=== PATIENT | female | born 1975 | race Caucasian/White ===

== ENCOUNTER 2016-06-01 02:17 | Emergency (ER) | payer BC, MEDICAID ==
[~2016-06-01] VITALS: Ht 157.5 cm; Wt 89.8 kg
[~2016-06-01 02:17] MED LIST: ALBU8.5H2 IH; BENZ100C18 PO; BUDE6HFA IH; DULO30CA3 PO; HYDR25CA5 PO; IBUP-1780 PO; LEVO125T6 PO; METO50TA2 PO; METO50TA7 PO; MONT10TA21 PO; NITR-65 PO; ONDA8TAB13 PO; OSLT75CRX PO; SULF1TAB35 PO
[2016-06-01] MEDS ORDERED: MONT10TA21 PO (02:41)
[2016-06-01] MEDS ORDERED: BECL8.7A6 IH (02:41)
[2016-06-01] MEDS ORDERED: RT-ALBUINH IH (02:41)
[2016-06-01] MEDS ORDERED: NS IV 1000 ML 1,000 ML IV ONE (02:44)
[2016-06-01] MEDS ORDERED: ONDANSETRON 4 MG/2 ML (SDV) Z0FRAN IVP ONE (02:45)
[2016-06-01 03:10] LABS: BILIRUBIN,URINE NEGATIVE (NEGATIVE); KETONES,URINE NEGATIVE (NEGATIVE); LEUKOCYTE ESTERASE ,URINE 1+ (NEGATIVE); NITRITE,URINE NEGATIVE (NEGATIVE); PH,URINE 5 (5-9); PROTEIN,URINE 1+ (NEGATIVE); UROBILINOGEN,URINE NORMAL (NORMAL)
[2016-06-01 03:12] LABS: BASOPHILS % (AUTO) 1 % (0-10); EOSINOPHILS # (AUTO) 0.1 10^3/uL (0.0-0.3); EOSINOPHILS % (AUTO) 2 % (0-10); LYMPHOCYTES # (AUTO) 2.1 X 10^3 (1.0-4.0); LYMPHOCYTES % (AUTO) 35 % (12-44); MEAN CORPUSCULAR HEMOGLOBIN 30 PG (25-34); MEAN CORPUSCULAR HGB CONC 34 G/DL (32-36); MEAN CORPUSCULAR VOLUME 86 FL (80-99); MEAN PLATELET VOLUME 11.9 FL (7.4-10.4); MONOCYTES # (AUTO) 0.5 X 10^3 (0.0-1.0); MONOCYTES % (AUTO) 9 % (0-12); NEUTROPHILS # (AUTO) 3.1 X 10^3 (1.8-7.8); NEUTROPHILS % (AUTO) 53 % (42-75); PLATELET COUNT 209 10^3/uL (130-400); RED BLOOD COUNT 4.73 10^6/uL (4.35-5.85); RED CELL DISTRIBUTION WIDTH 13.3 % (10.0-14.5); WHITE BLOOD COUNT 5.9 10^3/uL (4.3-11.0)
[2016-06-01 03:35] LABS: CALCIUM OXALATE CRYSTALS,UR FEW /LPF; SQUAMOUS EPITHELIAL CELL,UR 25-50 /HPF
[2016-06-01 03:44] LABS: ALANINE AMINOTRANSFERASE 20 U/L (0-55); ALBUMIN 4.4 G/DL (3.2-4.5); ANION GAP 12 MMOL/L (5-14); ASPARTATE AMINO TRANSFERASE 19 U/L (5-34); BILIRUBIN,TOTAL 0.7 MG/DL (0.1-1.0); BLOOD UREA NITROGEN 15 MG/DL (7-18); BUN/CREATININE RATIO 15; CARBON DIOXIDE 24 MMOL/L (21-32); CHLORIDE 106 MMOL/L (98-107); GFR ESTIMATED > 60; GLUCOSE 92 MG/DL (70-105); POTASSIUM 3.7 MMOL/L (3.6-5.0); SODIUM 142 MMOL/L (135-145); TOTAL PROTEIN 7.2 G/DL (6.4-8.2)
[2016-06-01 03:50] LABS: TROPONIN I < 0.30 NG/ML (<0.30)
[2016-06-01 04:12] LABS: THYROID STIMULATING HORMONE 3.48 UIU/ML (0.35-4.94)
[2016-06-01] MEDS ORDERED: RX-ONDANSETRON 4 MG ODT (ZOFRAN) PPK #4 SL STA (04:47)
--- NOTE | 2016-06-01 04:48 | ED General ---
General Chief Complaint: Dizziness/Syncope Stated Complaint: NAUSEA,PASSED OUT & FELL HITTING HEAD Nursing Triage Note: Pt c/o nausea x3 days and chills starting today. Pt reports she had feeling of nausea today and went to bathroom and woke up on floor. Pt also reports having syncopal epsisode at work tonight. Pt advises she becomes extremely nauseous and cold/clammy before having syncopal episode. Nursing Sepsis Screen: No Definite Risk Source of Information: Patient Exam Limitations: No Limitations History of Present Illness Time Seen by Provider: 02:27 Initial Comments This 40-year-old woman presents to the emergency room with complaints of significant nausea without vomiting for 3 days and associated episodes of syncope. She has felt chilled today without fever. Earlier in the day she woke up on the bathroom floor at her home not knowing how she got there. She had been very tired and nauseated just prior to that. She then went to work and had another episode of nausea and lightheadedness. She went to the bathroom and then reportedly had another syncopal episode. There was no injury and she denies any pain. She denies any chest pain, palpitations, or shortness of breath. She did have diaphoresis and shakiness associated with nausea. Her oral intake has been decreased due to nausea in the past 24 hours but she did eat today. She has a history of hypothyroidism, asthma, and hypertension. She denies any drug or alcohol use. Allergies and Home Medications Allergies Coded Allergies: Prochlorperazine (Verified Allergy, 03/15/13) metoclopramide (Verified Allergy, 03/15/13) morphine (Verified Allergy, 03/15/13) promethazine (Verified Allergy, 03/15/13) tramadol (Verified Allergy, 03/15/13) Home Medications Albuterol Sulfate 18 Gm Hfa.aer.ad Unknown Dose IH PRN (Reported) Beclomethasone Dipropionate 8.7 Gm Aer.w.adap 2 PUFF IH DAILY (Reported) Levothyroxine Sodium 125 Mcg Tablet 125 MCG PO DAILY (Reported) Metoprolol Tartrate 50 Mg Tablet 50 MG PO DAILY (Reported) Montelukast Sodium 10 Mg Tablet 10 MG PO HS (Reported) Constitutional: see HPI EENTM: no symptoms reported Respiratory: no symptoms reported Cardiovascular: syncope Gastrointestinal: see HPI Genitourinary: no symptoms reported : No Musculoskeletal: no symptoms reported Skin: no symptoms reported Psychiatric/Neurological: See HPI Hematologic/Lymphatic: No Symptoms Reported Past Pergghg-Vrntso-Cwggkr Hx Patient Social History Alcohol Use: Denies Use Recreational Drug Use: No Smoking Status: Never a Smoker Recent Foreign Travel: No Contact w/Someone Who Travel: No Recent Infectious Disease Expo: No Recent Hopitalizations: No Immunizations Up To Date Date of Influenza Vaccine: Jan 28, 2014 Seasonal Allergies Seasonal Allergies: No Surgeries HX Surgeries: Yes (MMK) Surgeries: Adenoidectomy, Section, Gallbladder, Hysterectomy, Tonsillectomy Respiratory Hx Respiratory Disorders: Yes Respiratory Disorders: Asthma Cardiovascular Hx Cardiac Disorders: Yes Cardiac Disorders: Hypertension Neurological Hx Neurological Disorders: No 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 System Hx 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 Disorders: No Sexually Transmitted Disease: No HIV/AIDS: 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 Genitourinary Hx Genitourinary Disorders: No Gastrointestinal Hx Gastrointestinal Disorders: No Musculoskeletal Hx Musculoskeletal Disorders: Yes Musculoskeletal Disorders: Arthritis, Chronic Back Pain Endocrine Hx Endocrine Disorders: Yes Endocrine Disorders: Hypothyroidsim HEENT HX ENT Disorders: No Cancer Hx Cancer: No Psychosocial Hx Psychiatric Problems: Yes Behavioral Health Disorders: Sleep Difficulties, Anxiety, PTSD, Depression Integumentary HX Skin/Integumentary Disorder: No Blood Transfusions Hx Blood Disorders: No Family Medical History Significant Family History: Heart Disease, Stroke, Other Conditions/Hx ( myasthenia gravis, lupus) Physical Exam Vital Signs Vital Sign - Last 12Hours 06/01/16 02:34 Temp 97.0 Pulse 88 Resp 18 B/P 132/83 Pulse Ox 97 O2 Delivery Room Air Capillary Refill : Less Than 3 Seconds General Appearance: No Apparent Distress WD/WN HEENT: PERRL/EOMI TMs Normal Normal ENT Inspection Pharynx Normal Neck: Normal Inspection Supple Respiratory: Lungs Clear Normal Breath Sounds No Accessory Muscle Use No Respiratory Distress Cardiovascular: Regular Rate, Rhythm No Edema No Murmur Normal Peripheral Pulses Gastrointestinal: Normal Bowel Sounds Non Tender Soft Back: Normal Inspection Extremity: Normal Inspection No Pedal Edema Neurologic/Psychiatric: Alert Oriented x3 No Motor/Sensory Deficits Normal 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 as 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 Skin: Normal Color Warm/Dry Progress/Results/Core Measures Results/Orders Lab Results Laboratory Tests Test 06/01/16 02:55 06/01/16 02:57 Range/Units Alanine Aminotransferase (ALT/SGPT) 20 0-55 U/L Albumin 4.4 3.2-4.5 G/DL Alkaline Phosphatase 131 40-136 U/L Anion Gap 12 5-14 MMOL/L Aspartate Amino Transf (AST/SGOT) 19 5-34 U/L BUN/Creatinine Ratio 15 Basophils # (Auto) 0.0 0.0-0.1 10^3/uL Basophils (%) (Auto) 1 0-10 % Blood Urea Nitrogen 15 7-18 MG/DL Calcium Level 10.0 8.5-10.1 MG/DL Carbon Dioxide Level 24 21-32 MMOL/L Chloride Level 106 98-107 MMOL/L Creatinine 1.00 0.60-1.30 MG/DL Eosinophils # (Auto) 0.1 0.0-0.3 10^3/uL Eosinophils (%) (Auto) 2 0-10 % Estimat Glomerular Filtration Rate > 60 Free Thyroxine 0.92 0.70-1.48 NG/DL Glucose Level 92 70-105 MG/DL Hematocrit 41 35-52 % Hemoglobin 14.0 11.5-16.0 G/DL Lymphocytes # (Auto) 2.1 1.0-4.0 X 10^3 Lymphocytes (%) (Auto) 35 12-44 % Mean Corpuscular Hemoglobin 30 25-34 PG Mean Corpuscular Hemoglobin Concent 34 32-36 G/DL Mean Corpuscular Volume 86 80-99 FL Mean Platelet Volume 11.9 H 7.4-10.4 FL Monocytes # (Auto) 0.5 0.0-1.0 X 10^3 Monocytes (%) (Auto) 9 0-12 % Neutrophils # (Auto) 3.1 1.8-7.8 X 10^3 Neutrophils (%) (Auto) 53 42-75 % Platelet Count 209 130-400 10^3/uL Potassium Level 3.7 3.6-5.0 MMOL/L Red Blood Count 4.73 4.35-5.85 10^6/uL Red Cell Distribution Width 13.3 10.0-14.5 % Sodium Level 142 135-145 MMOL/L Thyroid Stimulating Hormone (TSH) 3.48 0.35-4.94 UIU/ML Total Bilirubin 0.7 0.1-1.0 MG/DL Total Protein 7.2 6.4-8.2 G/DL Troponin I < 0.30 <0.30 NG/ML White Blood Count 5.9 4.3-11.0 10^3/uL Urine Bacteria FEW H /HPF Urine Bilirubin NEGATIVE NEGATIVE Urine Calcium Oxalate Crystals FEW H /LPF Urine Casts NONE /LPF Urine Clarity CLEAR Urine Color YELLOW Urine Crystals PRESENT H /LPF Urine Culture Indicated NO Urine Glucose (UA) NEGATIVE NEGATIVE Urine Ketones NEGATIVE NEGATIVE Urine Leukocyte Esterase 1+ H NEGATIVE Urine Mucus SMALL H /LPF Urine Nitrite NEGATIVE NEGATIVE Urine Protein 1+ H NEGATIVE Urine RBC RARE /HPF Urine RBC (Auto) 1+ H NEGATIVE Urine Specific [place] 1.025 H 1.016-1.022 Urine Squamous Epithelial Cells 25-50 H /HPF Urine Urobilinogen NORMAL NORMAL MG/DL Urine WBC 2-5 /HPF Urine pH 5 5-9 My Orders Orders-LILIANA BYRD MD Cbc With Automated Diff (06/01/16 02:27) Comprehensive Metabolic Panel (06/01/16 02:27) Troponin I (06/01/16 02:27) Ua Culture If Indicated (06/01/16 02:27) Saline Lock/Iv-Start (06/01/16 02:27) Ekg Tracing (06/01/16 02:27) Monitor-Rhythm Ecg Trace Only (06/01/16 02:27) Ns Iv 1000 Ml (Sodium Chloride 0.9%) (06/01/16 02:44) Ondansetron Injection (Zofran Injectio (06/01/16 02:45) Thyroid Stimulating Hormone (06/01/16 03:28) Chest 1 View, Ap/Pa Only (06/01/16 03:28) Free T4 (Free Thyroxine) (06/01/16 03:30) Rx-Ondansetron Po (Rx-Zofran Po) (06/01/16 04:47) Medications Given in ED Vital Signs/I&O Blood Pressure Mean: 99 Progress Note : Progress Note Workup was relatively unremarkable except for concentrated urine. Patient received a liter of IV fluids. A take-home pack of Zofran was dispensed. There is suspicion for vasovagal syncope given the association with nausea. Patient was advised to follow-up closely with her primary care provider. ECG Initial ECG Impression Date: Jun 01, 2016 Initial ECG Impression Time: 03:15 Initial ECG Rate: 71 Initial ECG Rhythm: Normal Sinus Initial ECG Intervals: Normal Initial ECG Impression: Normal Comment Normal sinus rhythm with no ST elevation or depression. No abnormal intervals or axis deviation. Diagnostic Imaging Diagonstic Imaging: Xray Plain Films/CT/US/NM/MRI: chest Comments Chest x-ray viewed by me. Report not yet available. No acute abnormalities appreciated. Departure Impression Impression: Primary Impression: Syncope Qualified Code: R55 - Syncope and collapse Additional Impression: Nausea Disposition: 01 HOME, SELF-CARE Condition: Improved Departure-Patient Inst. Decision time for Depature: 04:30 Referrals: NO,LOCAL PHYSICIAN (PCP/Family) Primary Care Physician Patient Instructions: Syncope (Fainting) (DC) Add. Discharge Instructions: Drink plenty of clear liquids. Gradually advance your diet with small quantities of bland food as tolerated. Eat small amounts frequently. Follow- up with your primary care provider soon as possible. If you feel lightheaded or dizzy, please sit down or lie down immediately to prevent passing out and injury. 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 Return to the ER if symptoms worsen. Dissolve Zofran (ondansetron) under the tongue every 4 hours as needed for nausea. All discharge instructions reviewed with patient and/or family. Voiced understanding. LILIANA BYRD MD Jun 01, 2016 04:48
[2016-06-01 05:08] VITALS: BP 124/87
--- NOTE | 2016-06-01 06:49 | Diagnostic Imaging Report ---
INDICATION: Dizziness EXAMINATION: Portable chest at 3:43 AM Heart size and pulmonary vascularity are normal. Lungs are clear. There are no effusions or pneumothoraces. IMPRESSION: Negative chest. Dictated by: Dictated on workstation # [id number]
== END 2016-06-01 05:08 | disposition home or self-care (01) ==
LOC: EDUNIT# 02:17 → ER 02:23
DX: R55 Syncope and collapse (principal); R11.0 Nausea; J45.909 Unspecified asthma, uncomplicated; I10 Essential (primary) hypertension
CPT/HCPCS: 36415; 71010; 80053; 81000; 84439; 84443; 84484; 85025; 93005; 93041; 96360; 96361

== ENCOUNTER 2016-08-14 20:39 | Emergency (ER) | payer SELFPAY ==
[~2016-08-14] VITALS: Ht 157.5 cm; Wt 89.8 kg
[~2016-08-14 20:39] MED LIST changes: +BECL8.7A6 IH; +RT-ALBUINH IH
--- NOTE | 2016-08-14 21:49 | ED Cough/URI ---
General Chief Complaint: Cough/Cold/Flu Symptoms Stated Complaint: THROAT PAIN Nursing Triage Note: PT C/O COUGH, COLD, CONGESTION X 2 WEEKS. SORE THROAT X 2 DAYS, RADIATING TO RIGHT EAR. Source: patient History of Present Illness Time seen by provider: 21:40 Initial Comments C/O SORE THROAT C/O PRODUCTIVE COUGH --YELLOW SPUTUM IN AM ONLY THESE SYMPTOMS X 2 WEEKS PAIN FROM THROAT RADIATING TO RIGHT EAR NO FEVER. HAD CHILLS LAST NIGHT NO SHORTNESS OF BREATH. WAS WHEEZING A FEW NIGHTS AGO STATES TONIGHT SHE HAS BEEN UNABLE TO EAT DUE TO THROAT PAIN, ABLE TO SWALLOW LIQUIDS OK NO KNOWN SICK CONTACTS PCP: BETTY DRUMMOND Allergies and Home Medications Allergies Coded Allergies: Prochlorperazine (Verified Allergy, 03/15/13) metoclopramide (Verified Allergy, 03/15/13) morphine (Verified Allergy, 03/15/13) promethazine (Verified Allergy, 03/15/13) tramadol (Verified Allergy, 03/15/13) Home Medications Albuterol Sulfate 18 Gm Hfa.aer.ad, Unknown Dose IH PRN, (Reported) Amoxicillin 875 Mg Tablet, 875 MG PO BID, #30 Prescribed by: GALO OROZCO on 08/14/162205 Beclomethasone Dipropionate 8.7 Gm Aer.w.adap, 2 PUFF IH DAILY, (Reported) Fluticasone Propionate 9.9 Ml [place].susp, 2 SPRAYS NS BID, #1 Prescribed by: GALO OROZCO on 08/14/162205 Levothyroxine Sodium 125 Mcg Tablet, 125 MCG PO DAILY, (Reported) Loratadine/Pseudoephedrine 1 Each Tab.er.12h, 1 EACH PO BID, #20 Prescribed by: GALO OROZCO on 08/14/162205 Methylprednisolone 4 Mg Tab.ds.pk, 4 MG PO UD, #1 Prescribed by: GALO OROZCO on 08/14/162205 Metoprolol Tartrate 50 Mg Tablet, 50 MG PO DAILY, (Reported) Montelukast Sodium 10 Mg Tablet, 10 MG PO HS, (Reported) Constitutional: no symptoms reported, No chills, No diaphoresis, No dizziness, No fever EENTM: ear pain, see HPI, throat pain, No hoarseness, No nose congestion Respiratory: see HPI, cough, No short of breath, No wheezing Cardiovascular: no symptoms reported Gastrointestinal: no symptoms reported, No nausea Genitourinary: no symptoms reported Musculoskeletal: no symptoms reported Skin: no symptoms reported Psychiatric/Neurological: No Symptoms Reported Hematologic/Lymphatic: No Symptoms Reported Immunological/Allergic: no symptoms reported Past Sfiskbc-Tibeyl-Wbhhwx Hx Patient Social History Alcohol Use: Denies Use Recreational Drug Use: No Smoking Status: Never a Smoker Recent Foreign Travel: No Contact w/Someone Who Travel: No Recent Infectious Disease Expo: No Recent Hopitalizations: No Immunizations Up To Date Date of Influenza Vaccine: Jan 28, 2014 Seasonal Allergies Seasonal Allergies: No Surgeries HX Surgeries: Yes (MMK) Surgeries: Adenoidectomy, Bladder Surgery, Section, Gallbladder, Hysterectomy, Tonsillectomy Respiratory Hx Respiratory Disorders: Yes Respiratory Disorders: Asthma Cardiovascular Hx Cardiac Disorders: Yes Cardiac Disorders: Hypertension Neurological Hx Neurological Disorders: No 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 System Hx 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 Disorders: Yes (HYST) Sexually Transmitted Disease: No HIV/AIDS: 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 Genitourinary Hx Genitourinary Disorders: No Gastrointestinal Hx Gastrointestinal Disorders: No Musculoskeletal Hx Musculoskeletal Disorders: Yes Musculoskeletal Disorders: Arthritis, Chronic Back Pain Endocrine Hx Endocrine Disorders: Yes Endocrine Disorders: Hypothyroidsim HEENT HX ENT Disorders: No Cancer Hx Cancer: No Psychosocial Hx Psychiatric Problems: Yes (EXTENSIVE PSYCH ISSUES--HX OF NON-COMPLIANCE) Behavioral Health Disorders: Sleep Difficulties, Anxiety, PTSD, Depression Integumentary HX Skin/Integumentary Disorder: No Blood Transfusions Hx Blood Disorders: No Physical Exam Vital Signs Vital Sign - Last 12Hours 08/14/16 08/14/16 08/14/16 21:32 21:35 22:18 Temp 98.3 Pulse 91 Resp 18 B/P (MAP) 142/93 Pulse Ox 97 O2 Delivery Room Air Capillary Refill : Less Than 3 Seconds General Appearance: WD/WN, no apparent distress, other (TALKS NON-STOP AT LENGTH. 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, no motor/sensory deficits, alert, normal mood/affect, oriented x 3 Skin: normal color, warm/dry Lymphatic: no adenopathy Progress/Results/Core Measures Results/Orders Lab Results Laboratory Tests Test 08/14/16 21:39 Range/Units Group A Streptococcus Screen NEGATIVE NEGATIVE My Orders Orders - GALO OROZCO DO Rapid Strep A Screen (08/14/16 21:42) Rx-Amoxicillin Capsule (Rx-Polymox Capsu (08/14/16 22:02) Rx-Naproxen (Rx-Naprosyn) (08/14/16 22:02) Vital Signs/I&O Vital Sign - Last 12Hours 08/14/16 08/14/16 08/14/16 21:32 21:35 22:18 Temp 98.3 Pulse 91 73 Resp 18 14 B/P (MAP) 142/93 Pulse Ox 97 O2 Delivery Room Air Blood Pressure Mean: 109 Departure Impression Impression: Primary Impression: Sinusitis Additional Impressions: Pharyngitis Bronchitis Disposition: 01 HOME, SELF-CARE Condition: Stable Departure-Patient Inst. Referrals: NO,LOCAL PHYSICIAN (PCP/Family) Primary Care Physician Patient Instructions: Acute Bronchitis, Adult (DC), Sinusitis, Adult (DC), Sore Throat, Adult (DC) Add. Discharge Instructions: FREQUENT SALT WATER GARGLES LOTS OF CLEAR LIQUIDS TYLENOL 1 GRAM /MOTRIN 800 MG 4 TIMES A DAY FOR PAIN OR FEVER FOLLOW UP WITH YOUR DR IN 3-4 DAYS IF NO BETTER All discharge instructions reviewed with patient and/or family. Voiced understanding. Scripts Methylprednisolone (Medrol) 4 Mg Tab.ds.pk 4 MG PO UD, #1 PKG Prov: GALO OROZCO DO 08/14/16 Fluticasone Propionate (Flonase Allergy Relief) 9.9 Ml [place].susp 2 SPRAYS NS BID, #1 SPRAY Prov: GALO OROZCO DO 08/14/16 Loratadine/Pseudoephedrine (Claritin-D 12 Hour Tablet) 1 Each Tab.er.12h 1 EACH PO BID, #20 TAB Prov: GALO OROZCO DO 08/14/16 Amoxicillin (Amoxicillin) 875 Mg Tablet 875 MG PO BID for INFECTION, #30 TAB Prov: GAOL OROZCO DO 08/14/16 GALO OROZCO DO Aug 14, 2016 21:49
[2016-08-14] MEDS ORDERED: RX-AMOXICILLIN 500 MG CAP #3 PPK PO STA (22:02)
[2016-08-14] MEDS ORDERED: RX-NAPROXEN (NAPROSYN) 250 MG TAB PPK#4 PO STA (22:02)
[2016-08-14] MEDS ORDERED: FLUT9.9S NS (22:06)
[2016-08-14] MEDS ORDERED: AMOX875T2 PO (22:06)
[2016-08-14] MEDS ORDERED: METH4TAB PO (22:06)
[2016-08-14] MEDS ORDERED: LORA1TAB59 PO (22:06)
[2016-08-14 22:18] VITALS: BP 145/76
== END 2016-08-14 22:13 | disposition home or self-care (01) ==
LOC: EDUNIT# 20:39 → ER 20:42
DX: J01.90 Acute sinusitis, unspecified (principal); J02.9 Acute pharyngitis, unspecified; J40 Bronchitis, not specified as acute or chronic
CPT/HCPCS: 87430; 99283

== ENCOUNTER 2017-04-29 17:20 | Emergency (ER) | payer SELFPAY ==
[~2017-04-29] VITALS: Ht 157.5 cm; Wt 92.1 kg
[~2017-04-29 17:20] MED LIST changes: +AMOX875T2 PO; +FLUT9.9S NS; +LORA1TAB59 PO; +METH4TAB PO; +METO50TA15 PO; -METO50TA2 PO
--- OUTSIDE RECORDS SUMMARY | 2017-04-29 17:25 | XMS REPORT | Continuity of Care Document ---
Author Author [facility] Address Unknown Phone Unavailable Allergies Active Description Code Type Severity Reaction Onset Reported/Identified Relationship to Patient Clinical Status Yes Compazine Drug Allergy 10/03/2011 Yes Flexeril Drug Allergy 10/03/2011 Yes morphine Drug Allergy 10/03/2011 Yes Phenergan-Codeine Drug Allergy 10/03/2011 Yes Reglan Drug Allergy 10/03/2011 Yes tramadol Drug Allergy 10/03/2011 Yes metoclopramide [id number] Drug Allergy Unknown N/A 03/15/2013 Yes morphine [id number] Drug Allergy Unknown N/A 03/15/2013 Yes prochlorperazine [id number] Drug Allergy Unknown N/A 03/15/2013 Yes promethazine [id number] Drug Allergy Unknown N/A 03/15/2013 Yes tramadol [id number] Drug Allergy Unknown N/A 03/15/2013 Medications There is no data. Problems Date Dx Coded Attending Type Code Diagnosis Diagnosed By 12/05/2007 MIKE LOPEZ PHD 244.9 HYPOTHYROIDISM 12/05/2007 MIKE LOPEZ PHD 272.4 HYPERLIPIDEMIA UNSPECIFIED 12/05/2007 MIKE LOPEZ PHD 244.9 HYPOTHYROIDISM 12/05/2007 MIKE LOPEZ PHD 272.4 HYPERLIPIDEMIA UNSPECIFIED 02/26/2008 MIKE LOPEZ PHD 401.1 HYPERTENSION, BENIGN ESSENTIAL 02/26/2008 MIKE LOPEZ PHD 401.1 HYPERTENSION, BENIGN ESSENTIAL 03/17/2008 MIKE LOPEZ PHD 564.1 IRRITABLE BOWEL SYNDROME 03/17/2008 MIKE LOPEZ PHD 564.1 IRRITABLE BOWEL SYNDROME 09/21/2011 MIKE LOPEZ PHD 296.32 MO DEPRESSIVE RECURRENT MODERATE 09/21/2011 MIKE LOPEZ PHD 296.32 MO DEPRESSIVE RECURRENT MODERATE 10/03/2011 MIKE LOPEZ PHD 296.30 MO DEPRESSIVE RECURRENT UNSPECIFIED 10/03/2011 MIKE LOPEZ PHD 307.47 SI DYSSOMNIA NOS 10/03/2011 JESSICA GORDON, MIKE Steiner 309.81 AN PTSD 10/03/2011 JESSICA GORDON, MIKE Steiner 296.30 MO DEPRESSIVE RECURRENT UNSPECIFIED 10/03/2011 JESSICA GORDON, MIKE Steiner 307.47 SI DYSSOMNIA NOS 10/03/2011 JESSICA GORDON, MIKE Steiner 309.81 AN PTSD 01/26/2012 JESSICA GORDON, MIKE Steiner 300.00 AN ANXIETY UNSPEC 01/26/2012 JESSICA GORDON, MIKE Steiner 300.00 AN ANXIETY UNSPEC 03/15/2013 GALO OROZCO DO Ot 300.00 ANXIETY STATE NOS 03/15/2013 GALO OROZCO DO Ot 599.0 URIN TRACT INFECTION NOS 07/06/2014 Ot 487.1 FLU W RESP MANIFEST NEC 07/06/2014 Ot 786.2 COUGH 07/30/2015 Ot N76.4 ABSCESS OF VULVA 06/01/2016 LILIANA BYRD MD T Ot I10 ESSENTIAL (PRIMARY) HYPERTENSION 06/01/2016 LILIANA BYRD MD Ot J45.909 UNSPECIFIED ASTHMA, UNCOMPLICATED 06/01/2016 LILIANA BYRD MD T Ot R11.0 NAUSEA 06/01/2016 LILIANA BYRD MD T Ot R55 SYNCOPE AND COLLAPSE 06/02/2016 LILIANA BYRD MD T Ot I10 ESSENTIAL (PRIMARY) HYPERTENSION 06/02/2016 LILIANA BYRD MD T Ot J45.909 UNSPECIFIED ASTHMA, UNCOMPLICATED 06/02/2016 LILIANA BYRD MD T Ot R11.0 NAUSEA 06/02/2016 LILIANA BYRD MD T Ot R55 SYNCOPE AND COLLAPSE 06/07/2016 LILIANA BYRD MD T Ot I10 ESSENTIAL (PRIMARY) HYPERTENSION 06/07/2016 LILIANA BYRD MD T Ot J45.909 UNSPECIFIED ASTHMA, UNCOMPLICATED 06/07/2016 LILIANA BYRD MD T Ot R11.0 NAUSEA 06/07/2016 LILIANA BRYD MD T Ot R55 SYNCOPE AND COLLAPSE 08/14/2016 GALO OROZCO DO Ot J01.90 ACUTE SINUSITIS, UNSPECIFIED 08/14/2016 GALO OROZCO DO Ot J02.9 ACUTE PHARYNGITIS, UNSPECIFIED 08/14/2016 GALO OROZCO DO Ot J40 BRONCHITIS, NOT SPECIFIED ACUTE OR CH 08/15/2016 GALO OROZCO DO Ot J01.90 ACUTE SINUSITIS, UNSPECIFIED 08/15/2016 GALO OROZCO DO Ot J02.9 ACUTE PHARYNGITIS, UNSPECIFIED 08/15/2016 ERNESTO GALO CARROLL Ot J40 BRONCHITIS, NOT SPECIFIED ACUTE OR CH 08/20/2016 GALO OROZCO DO Ot J01.90 ACUTE SINUSITIS, UNSPECIFIED 08/20/2016 GALO OROZCO DO Ot J02.9 ACUTE PHARYNGITIS, UNSPECIFIED 08/20/2016 ERNESTO GALO CARROLL Ot J40 BRONCHITIS, NOT SPECIFIED ACUTE OR CH Procedures Code Description [place] [address] INDIV PSYTX 45/50 MIN 03/20/2012 74976 INDIV PSYTX 45/50 MIN 04/26/2012 Results Test Result Range Complete blood count (CBC) with automated white blood cell (WBC) differential - 06/01/16 02:55 Blood leukocytes automated count (number/volume) 5.9 10*3/uL 4.3-11.0 Blood erythrocytes automated count (number/volume) 4.73 10*6/uL 4.35-5.85 Venous blood hemoglobin measurement (mass/volume) 14.0 g/dL 11.5-16.0 Blood hematocrit (volume fraction) 41 % 35-52 Automated erythrocyte mean corpuscular volume 86 [foz_us] 80-99 Automated erythrocyte mean corpuscular hemoglobin (mass per erythrocyte) 30 pg 25-34 Automated erythrocyte mean corpuscular hemoglobin concentration measurement ( mass/volume) 34 g/dL 32-36 Automated erythrocyte distribution width ratio 13.3 % 10.0-14.5 Automated blood platelet count (count/volume) 209 10*3/uL 130-400 Automated blood platelet mean volume measurement 11.9 [foz_us] 7.4-10.4 Automated blood neutrophils/100 leukocytes 53 % 42-75 Automated blood lymphocytes/100 leukocytes 35 % 12-44 Blood monocytes/100 leukocytes 9 % 0-12 Automated blood eosinophils/100 leukocytes 2 % 0-10 Automated blood basophils/100 leukocytes 1 % 0-10 Blood neutrophils automated count (number/volume) 3.1 10*3 1.8-7.8 Blood lymphocytes automated count (number/volume) 2.1 10*3 1.0-4.0 Blood monocytes automated count (number/volume) 0.5 10*3 0.0-1.0 Automated eosinophil count 0.1 10*3/uL 0.0-0.3 Automated blood basophil count (count/volume) 0.0 10*3/uL 0.0-0.1 Comprehensive metabolic panel - 06/01/16 02:55 Serum or plasma sodium measurement (moles/volume) 142 mmol/L 135-145 Serum or plasma potassium measurement (moles/volume) 3.7 mmol/L 3.6-5.0 Serum or plasma chloride measurement (moles/volume) 106 mmol/L 98-107 Carbon dioxide 24 mmol/L 21-32 Serum or plasma anion gap determination (moles/volume) 12 mmol/L 5-14 Serum or plasma urea nitrogen measurement (mass/volume) 15 mg/dL 7-18 Serum or plasma creatinine measurement (mass/volume) 1.00 mg/dL 0.60-1.30 Serum or plasma urea nitrogen/creatinine mass ratio 15 NRG Serum or plasma creatinine measurement with calculation of estimated glomerular filtration rate > NRG Serum or plasma glucose measurement (mass/volume) 92 mg/dL 70-105 Serum or plasma calcium measurement (mass/volume) 10.0 mg/dL 8.5-10.1 Serum or plasma total bilirubin measurement (mass/volume) 0.7 mg/dL 0.1-1.0 Serum or plasma alkaline phosphatase measurement (enzymatic activity/volume) 131 U/L 40-136 Serum or plasma aspartate aminotransferase measurement (enzymatic activity/ volume) 19 U/L 5-34 Serum or plasma alanine aminotransferase measurement (enzymatic activity/volume ) 20 U/L 0-55 Serum or plasma protein measurement (mass/volume) 7.2 g/dL 6.4-8.2 Serum or plasma albumin measurement (mass/volume) 4.4 g/dL 3.2-4.5 Serum or plasma troponin i.cardiac measurement (mass/volume) - 06/01/16 02:55 Serum or plasma troponin i.cardiac measurement (mass/volume) < ng/ mL <0.30 THYROID STIMULATING HORMONE - 06/01/16 02:55 THYROID STIMULATING HORMONE 3.48 u[iU]/mL 0.35-4.94 Serum or plasma thyroxine (T4) free measurement (mass/volume) - 06/01/16 02:55 Serum or plasma thyroxine (T4) free measurement (mass/volume) 0.92 ng/dL 0.70-1.48 Complete urinalysis with reflex to culture - 06/01/16 02:57 Urine color determination YELLOW NRG Urine clarity determination CLEAR NRG Urine pH measurement by test strip 5 5-9 Specific gravity of urine by test strip 1.025 1.016- 1.022 Urine protein assay by test strip, semi-quantitative 1+ NEGATIVE Urine glucose detection by automated test strip NEGATIVE NEGATIVE Erythrocytes detection in urine sediment by light microscopy 1+ NEGATIVE Urine ketones detection by automated test strip NEGATIVE NEGATIVE Urine nitrite detection by test strip NEGATIVE NEGATIVE Urine total bilirubin detection by test strip NEGATIVE NEGATIVE Urine urobilinogen measurement by automated test strip (mass/volume) NORMAL NORMAL Urine leukocyte esterase detection by dipstick 1+ NEGATIVE Automated urine sediment erythrocyte count by microscopy (number/high power field) RARE NRG Automated urine sediment leukocyte count by microscopy (number/high power field ) [HPF] NRG Bacteria detection in urine sediment by light microscopy FEW NRG Squamous epithelial cells detection in urine sediment by light microscopy 25-50 NRG Crystals detection in urine sediment by light microscopy PRESENT NRG Casts detection in urine sediment by light microscopy NONE NRG Mucus detection in urine sediment by light microscopy SMALL NRG Complete urinalysis with reflex to culture NO NRG Calcium oxalate crystals detection in urine sediment by light microscopy FEW NRG Streptococcus pyogenes antigen detection - 08/14/16 21:39 Streptococcus pyogenes antigen detection NEGATIVE NEGATIVE Bacterial throat culture - 08/14/16 21:39 Bacterial throat culture NBS NRG Encounters ACCT No. Visit Date/Time Discharge Status Pt. Type Provider Facility Loc./Unit Complaint [id number] 04/26/2012 08:58:00 04/26/2012 23:59:59 [facility] MIKE LOPEZ PHD [id number] 02/09/2012 07:38:00 02/09/2012 23:59:59 [facility] MIKE LOPEZ PHD [id number] 08/14/2016 20:42:00 08/14/2016 22:13:00 DIS Outpatient GALO OROZCO DO [facility] ER THROAT PAIN [id number] 06/01/2016 02:23:00 06/01/2016 05:08:00 DIS Emergency CARSON HANKINS, LILIANA Baires [facility] ER NAUSEA,PASSED OUT FELL HIT HEAD [id number] 03/15/2013 18:48:00 03/15/2013 21:29:00 DIS Emergency GALO OROZCO DO [facility] ER MULTIPLE COMPLAINTS [id number] 07/30/2015 17:14:00 Document Registration [id number] 07/06/2014 19:22:00 Document Registration
[2017-04-29] MEDS ORDERED: MECLIZINE 25 MG (ANTIVERT) TAB PO ONE (18:15)
--- NOTE | 2017-04-29 18:19 | ED General ---
General Chief Complaint: Dizziness/Syncope Stated Complaint: DIZZINESS Nursing Triage Note: AMB TO ROOM REPORTS THAT AT 730A TODAY WHEN SHE GOT UP SHE HAS BEEN DIZZY WORSE WHEN MOVING. AMBULATED TO ROOM WITHOUT PROBLEM Nursing Sepsis Screen: No Definite Risk Source of Information: Patient Exam Limitations: No Limitations History of Present Illness Time Seen by Provider: 18:06 Initial Comments Here with report dizziness that started this morning. She states is worse when she started to set up quickly. She almost fell over twice today. Denies any recent illness. States that she's been eating and drinking okay. Denies ever having anything like this before. Timing/Duration: 12 Hours Severity: Mild Associated Systoms: No Chest Pain, No Cough, No Fever/Chills, No Nausea/ Vomiting, No Syncope Allergies and Home Medications Allergies Coded Allergies: Prochlorperazine (Verified Allergy, 03/15/13) metoclopramide (Verified Allergy, 03/15/13) morphine (Verified Allergy, 03/15/13) promethazine (Verified Allergy, 03/15/13) tramadol (Verified Allergy, 03/15/13) Home Medications Albuterol Sulfate 18 Gm Hfa.aer.ad, Unknown Dose IH PRN, (Reported) Beclomethasone Dipropionate 8.7 Gm Aer.w.adap, 2 PUFF IH DAILY, (Reported) Fluticasone Propionate 9.9 Ml [place].susp, 2 SPRAYS NS BID, #1 Prescribed by: GALO OROZCO on 08/14/162205 Levothyroxine Sodium 125 Mcg Tablet, 125 MCG PO DAILY, (Reported) Loratadine/Pseudoephedrine 1 Each Tab.er.12h, 1 EACH PO BID, #20 Prescribed by: GALO OROZCO on 08/14/162205 Methylprednisolone 4 Mg Tab.ds.pk, 4 MG PO UD, #1 Prescribed by: GALO OROZCO on 08/14/162205 Metoprolol Tartrate 50 Mg Tablet, 50 MG PO DAILY, (Reported) Montelukast Sodium 10 Mg Tablet, 10 MG PO HS, (Reported) Constitutional: see HPI, No chills, No fever EENTM: no symptoms reported Respiratory: no symptoms reported, No short of breath Cardiovascular: no symptoms reported Gastrointestinal: No abdominal pain, No nausea, No vomiting Genitourinary: no symptoms reported Musculoskeletal: no symptoms reported Skin: no symptoms reported Psychiatric/Neurological: See HPI, Denies Headache, Other (dizziness) Hematologic/Lymphatic: No Symptoms Reported Past Plpiyrk-Mcpkzo-Acwkgq Hx Patient Social History Alcohol Use: Denies Use Recreational Drug Use: No Recent Foreign Travel: No Contact w/Someone Who Travel: No Recent Infectious Disease Expo: No Recent Hopitalizations: No Immunizations Up To Date Date of Influenza Vaccine: Jan 28, 2014 Seasonal Allergies Seasonal Allergies: No Surgeries History of Surgeries: Yes (MMK) Surgeries: Adenoidectomy, Bladder Surgery, Section, Gallbladder, Hysterectomy, Tonsillectomy Respiratory History of Respiratory Disorde: Yes Respiratory Disorders: Asthma Cardiovascular History of Cardiac Disorders: Yes Cardiac Disorders: Hypertension Neurological History of Neurological Disord: No 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 System Hx 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 Disorders: Yes (HYST) Sexually Transmitted Disease: No HIV/AIDS: No 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 Gastrointestinal History of Gastrointestinal Di: No Musculoskeletal History of Musculoskeletal Dis: Yes Musculoskeletal Disorders: Arthritis, Chronic Back Pain Endocrine History of Endocrine Disorders: Yes Endocrine Disorders: Hypothyroidsim Cancer History of Cancer: No Psychosocial History of Psychiatric Problem: Yes (EXTENSIVE PSYCH ISSUES--HX OF NON- COMPLIANCE) Behavioral Health Disorders: Sleep Difficulties, Anxiety, PTSD, Depression Integumentary History of Skin or Integumenta: No Blood Transfusions History of Blood Disorders: No Reviewed Nursing Assessment Reviewed/Agree w Nursing PMH: Yes Family Medical History Significant Family History: No Pertinent Family Hx Physical Exam Vital Signs Vital Sign - Last 12Hours 04/29/17 17:40 Temp 97.5 Pulse 96 Resp 18 B/P (MAP) 149/96 (113) Capillary Refill : Less Than 3 Seconds General Appearance: No Apparent Distress (2 cm centimeter), WD/WN HEENT: PERRL/EOMI, TMs Normal, Pharynx Normal Neck: Non Tender, Supple Respiratory: Lungs Clear, Normal Breath Sounds Cardiovascular: Regular Rate, Rhythm, No Murmur Gastrointestinal: Non Tender, Soft Back: Normal Inspection, No CVA Tenderness, No Vertebral Tenderness Extremity: Normal Range of Motion, Non Tender Neurologic/Psychiatric: Alert, Oriented x3 Skin: Normal Color, Warm/Dry Progress/Results/Core Measures Suspected Sepsis Recent Fever Within 48 Hours: No Infection Criteria Present: None New/Unexplained Altered Menta: No Sepsis Screen: No Definite Risk Sepsis Diagnosis: SIRS Temperature:97.5 Pulse: 96 Respiratory Rate: 18 Laboratory Tests 04/29/17 18:30: White Blood Count 6.7 Blood Pressure 149 /96 Mean: 113 Laboratory Tests 04/29/17 18:30: Creatinine 0.98, Platelet Count 226, Total Bilirubin 0.6 Results/Orders Lab Results Laboratory Tests Test 04/29/17 18:30 04/29/17 18:40 Range/Units White Blood Count 6.7 4.3-11.0 10^3/uL Red Blood Count 4.68 4.35-5.85 10^6/uL Hemoglobin 13.6 11.5-16.0 G/DL Hematocrit 40 35-52 % Mean Corpuscular Volume 86 80-99 FL Mean Corpuscular Hemoglobin 29 25-34 PG Mean Corpuscular Hemoglobin Concent 34 32-36 G/DL Red Cell Distribution Width 13.4 10.0-14.5 % Platelet Count 226 130-400 10^3/uL Mean Platelet Volume 11.5 H 7.4-10.4 FL Neutrophils (%) (Auto) 49 42-75 % Lymphocytes (%) (Auto) 39 12-44 % Monocytes (%) (Auto) 8 0-12 % Eosinophils (%) (Auto) 3 0-10 % Basophils (%) (Auto) 0 0-10 % Neutrophils # (Auto) 3.3 1.8-7.8 X 10^3 Lymphocytes # (Auto) 2.6 1.0-4.0 X 10^3 Monocytes # (Auto) 0.5 0.0-1.0 X 10^3 Eosinophils # (Auto) 0.2 0.0-0.3 10^3/uL Basophils # (Auto) 0.0 0.0-0.1 10^3/uL Sodium Level 142 135-145 MMOL/L Potassium Level 3.7 3.6-5.0 MMOL/L Chloride Level 104 98-107 MMOL/L Carbon Dioxide Level 27 21-32 MMOL/L Anion Gap 11 5-14 MMOL/L Blood Urea Nitrogen 14 7-18 MG/DL Creatinine 0.98 0.60-1.30 MG/DL Estimat Glomerular Filtration Rate > 60 BUN/Creatinine Ratio 14 Glucose Level 89 70-105 MG/DL Calcium Level 9.7 8.5-10.1 MG/DL Magnesium Level 1.9 1.8-2.4 MG/DL Total Bilirubin 0.6 0.1-1.0 MG/DL Aspartate Amino Transf (AST/SGOT) 24 5-34 U/L Alanine Aminotransferase (ALT/SGPT) 23 0-55 U/L Alkaline Phosphatase 138 H 40-136 U/L Total Protein 8.2 6.4-8.2 GM/DL Albumin 4.5 3.2-4.5 GM/DL Thyroid Stimulating Hormone (TSH) 14.84 H 0.35-4.94 UIU/ML Urine Color YELLOW Urine Clarity CLEAR Urine pH 7 5-9 Urine Specific [place] 1.015 L 1.016-1.022 Urine Protein NEGATIVE NEGATIVE Urine Glucose (UA) NEGATIVE NEGATIVE Urine Ketones NEGATIVE NEGATIVE Urine Nitrite NEGATIVE NEGATIVE Urine Bilirubin NEGATIVE NEGATIVE Urine Urobilinogen 1 NORMAL MG/DL Urine Leukocyte Esterase 3+ H NEGATIVE Urine RBC (Auto) 2+ H NEGATIVE Urine RBC 2-5 H /HPF Urine WBC 10-25 H /HPF Urine Squamous Epithelial Cells 10-25 H /HPF Urine Crystals NONE /LPF Urine Bacteria NEGATIVE /HPF Urine Casts NONE /LPF Urine Mucus NEGATIVE /LPF Urine Culture Indicated YES My Orders Orders - ESTEFANI CASTILLO MD Cbc With Automated Diff (04/29/17 18:14) Comprehensive Metabolic Panel (04/29/17 18:14) Magnesium (04/29/17 18:14) Thyroid Stimulating Hormone (04/29/17 18:14) Ua Culture If Indicated (04/29/17 18:14) Meclizine Tablet (Antivert Tablet) (04/29/17 18:15) Urine Culture (04/29/17 18:40) Sulfamethoxazole/Trimet Ds Tab (Bactrim (04/29/17 19:48) Rx-Trimeth/Sulfameth Ds Tab (Rx-Bactrim/ (04/29/17 19:51) Medications Given in ED Current Medications Medications Dose Ordered Sig/Lynn Route Start Time Stop Time Status Last Admin Dose Admin Meclizine HCl 25 mg ONCE ONCE PO 04/29/17 18:15 04/29/17 18:17 DC 04/29/17 18:57 25 MG Vital Signs/I&O Vital Sign - Last 12Hours 04/29/17 17:40 Temp 97.5 Pulse 96 Resp 18 B/P (MAP) 149/96 (113) Capillary Refill : Less Than 3 Seconds Blood Pressure Mean: 113 Progress Note : Progress Note Seen and evaluated. Labs and UA ordered. Meclizine 25 mg by mouth. Monitor patient. 1950: Urine shows questionable urinary tract infection. Otherwise no significant findings. Patient improved after meclizine. We will initiate treatment for UTI. Discharged home with return precautions. Patient verbalize understanding instructions and agreement with plan. Instructed to follow-up with her doctor regarding her thyroid level. Departure Impression Impression: Primary Impression: Urinary tract infection Qualified Codes: N30.00 - Acute cystitis without hematuria Additional Impression: Vertigo Disposition: HOME, SELF-CARE Condition: Improved Departure-Patient Inst. Decision time for Depature: 19:54 Referrals: IRVIN DALEY MD (PCP/Family) Primary Care Physician Patient Instructions: Urinary Tract Infection, Adult (DC), Vertigo (a Type of Dizziness) (DC) Add. Discharge Instructions: All discharge instructions reviewed with patient and/or family. Voiced understanding. Drink plenty of fluids. Take medications as directed. Follow-up with your doctor regarding your thyroid studies. You should go to the store [employer] meclizine 25 mg tablets. You may take one of those every 6-8 hours as needed for dizziness. Return for worse pain, fever, vomiting, weakness, breathing problems or other concerns as needed. Scripts Sulfamethoxazole/Trimethoprim (Sulfamethoxazole-Tmp Ds Tablet) 1 Each Tablet 1 EACH PO BID, #8 TAB 0 Refills Prov: ESTEFANI CASTILLO MD 04/29/17 ESTEFANI CASTILLO MD Apr 29, 2017 18:19
[2017-04-29 18:47] LABS: BILIRUBIN,URINE NEGATIVE (NEGATIVE); CLARITY,URINE CLEAR; COLOR,URINE YELLOW; GLUCOSE, URINE (UA) NEGATIVE (NEGATIVE); KETONES,URINE NEGATIVE (NEGATIVE); LEUKOCYTE ESTERASE ,URINE 3+ (NEGATIVE); NITRITE,URINE NEGATIVE (NEGATIVE); PH,URINE 7 (5-9); PROTEIN,URINE NEGATIVE (NEGATIVE); UROBILINOGEN,URINE 1 MG/DL (NORMAL)
[2017-04-29 18:48] LABS: BASOPHILS % (AUTO) 0 % (0-10); EOSINOPHILS # (AUTO) 0.2 10^3/uL (0.0-0.3); EOSINOPHILS % (AUTO) 3 % (0-10); HEMATOCRIT 40 % (35-52); HEMOGLOBIN 13.6 G/DL (11.5-16.0); LYMPHOCYTES # (AUTO) 2.6 X 10^3 (1.0-4.0); LYMPHOCYTES % (AUTO) 39 % (12-44); MEAN CORPUSCULAR HEMOGLOBIN 29 PG (25-34); MEAN CORPUSCULAR HGB CONC 34 G/DL (32-36); MEAN CORPUSCULAR VOLUME 86 FL (80-99); MEAN PLATELET VOLUME 11.5 FL (7.4-10.4); MONOCYTES # (AUTO) 0.5 X 10^3 (0.0-1.0); MONOCYTES % (AUTO) 8 % (0-12); NEUTROPHILS # (AUTO) 3.3 X 10^3 (1.8-7.8); NEUTROPHILS % (AUTO) 49 % (42-75); PLATELET COUNT 226 10^3/uL (130-400); RED BLOOD COUNT 4.68 10^6/uL (4.35-5.85); RED CELL DISTRIBUTION WIDTH 13.4 % (10.0-14.5); WHITE BLOOD COUNT 6.7 10^3/uL (4.3-11.0)
[2017-04-29 18:57] LABS: BACTERIA,URINE NEGATIVE /HPF
[2017-04-29 19:07] LABS: ALANINE AMINOTRANSFERASE 23 U/L (0-55); ALBUMIN 4.5 GM/DL (3.2-4.5); ALKALINE PHOSPHATASE 138 U/L (40-136); BILIRUBIN,TOTAL 0.6 MG/DL (0.1-1.0); BUN/CREATININE RATIO 14; CALCIUM 9.7 MG/DL (8.5-10.1); CARBON DIOXIDE 27 MMOL/L (21-32); CHLORIDE 104 MMOL/L (98-107); CREATININE SERUM 0.98 MG/DL (0.60-1.30); GFR ESTIMATED > 60; GLUCOSE 89 MG/DL (70-105); MAGNESIUM 1.9 MG/DL (1.8-2.4); POTASSIUM 3.7 MMOL/L (3.6-5.0); SODIUM 142 MMOL/L (135-145); TOTAL PROTEIN 8.2 GM/DL (6.4-8.2)
[2017-04-29] MEDS ORDERED: TRIM/SULFAMETH 160/800 (SEPTRA DS) TAB PO STA (19:48)
[2017-04-29] MEDS ORDERED: RX-TRIMETH/SULFA. 160-800 MG (BACTRIM DS) TAB PPK#2 PO STA (19:51)
[2017-04-29] MEDS ORDERED: SULF-222 PO (19:56)
[2017-04-29 20:06] VITALS: BP 149/96
== END 2017-04-29 20:06 | disposition home or self-care (01) ==
LOC: EDUNIT# 17:20 → ER 17:21
DX: N39.0 Urinary tract infection, site not specified (principal); R42 Dizziness and giddiness; J45.909 Unspecified asthma, uncomplicated; I10 Essential (primary) hypertension; E03.9 Hypothyroidism, unspecified; F41.9 Anxiety disorder, unspecified; F43.10 Post-traumatic stress disorder, unspecified; F32.9 Major depressive disorder, single episode, unspecified; Z91.19 Patient's noncompliance with other medical treatment and regimen; Z90.89 Acquired absence of other organs; Z90.710 Acquired absence of both cervix and uterus; Z87.59 Personal history of other complications of pregnancy, childbirth and the puerperium
CPT/HCPCS: 36415; 80053; 81000; 83735; 84439; 84443; 85025; 87088; 99283

== ENCOUNTER 2019-01-23 08:18 | Emergency (ER) | payer SELFPAY ==
[~2019-01-23] VITALS: Ht 162 cm; Wt 99.0 kg
[~2019-01-23 08:18] MED LIST changes: +SULF-222 PO
--- NOTE | 2019-01-23 09:02 | ED Cough/URI ---
General Chief Complaint: Cough/Cold/Flu Symptoms Stated Complaint: COUGH/CONGESTION BODY ACHES FEVER Nursing Triage Note: PT STATES THIS IS DAY #8 OF BODY ACHES, FEVER, SORE THROAT, AND COUGH. Sepsis Screen: No Definite Risk Source: patient Exam Limitations: no limitations History of Present Illness Date Seen by Provider: Jan 23, 2019 Time Seen by Provider: 08:48 Initial Comments Here with report of cough, nasal congestion and runny nose and sore throat for the last 8 days. Has been intermittent since but seems to be worse at night. Not better. States that she usually gets bacterial upper respiratory infection annually and this feels like what. Denies nausea, vomiting, weakness, fever, diarrhea or dysuria. Timing/Duration: week, getting worse Severity/Quality: moderate, dry cough Prior Episodes/Possible Cause: occasional episodes Modifying Factors: Improves With Albuterol Inhaler; Worse With Coughing; Improves With Rest Associated Symptoms: cough, muscle aches, nasal congestion, nasal drainage, sore throat, wheezing Allergies and Home Medications Allergies Coded Allergies: Prochlorperazine (Verified Allergy, 03/15/13) metoclopramide (Verified Allergy, 03/15/13) morphine (Verified Allergy, 03/15/13) promethazine (Verified Allergy, 03/15/13) tramadol (Verified Allergy, 03/15/13) Home Medications Albuterol Sulfate 18 Gm Hfa.aer.ad, Unknown Dose IH PRN, (Reported) Beclomethasone Dipropionate 8.7 Gm Aer.w.adap, 2 PUFF IH DAILY, (Reported) Fluticasone Propionate 9.9 Ml Wynne.susp, 2 SPRAYS NS BID Prescribed by: GALO OROZCO on 08/14/162205 Levothyroxine Sodium 125 Mcg Tablet, 125 MCG PO DAILY, (Reported) Loratadine/Pseudoephedrine 1 Each Tab.er.12h, 1 EACH PO BID Prescribed by: GALO OROZCO on 08/14/162205 Methylprednisolone 4 Mg Tab.ds.pk, 4 MG PO UD Prescribed by: GALO OROZCO on 08/14/162205 Metoprolol Tartrate 50 Mg Tablet, 50 MG PO DAILY, (Reported) Montelukast Sodium 10 Mg Tablet, 10 MG PO HS, (Reported) Sulfamethoxazole/Trimethoprim 1 Each Tablet, 1 EACH PO BID Prescribed by: ESTEFANI CASTILLO on 04/29/171955 Patient Home Medication List Home Medication List Reviewed: Yes Review of Systems Review of Systems Constitutional: see HPI; No chills, No fever EENTM: see HPI Respiratory: see HPI; No hemoptysis, No short of breath Cardiovascular: No chest pain, No palpitations Gastrointestinal: No abdominal pain, No nausea, No vomiting Genitourinary: no symptoms reported Skin: no symptoms reported Past Fzgnmvp-Qjtbfv-Gmtylx Hx Past Med/Social Hx: Reviewed Nursing Past Med/Soc Hx Patient Social History Alcohol Use: Denies Use Recreational Drug Use: No Smoking Status: Never a Smoker Recent Foreign Travel: No Contact w/Someone Who Travel: No Recent Infectious Disease Expo: No Recent Hopitalizations: No Immunizations Up To Date Date of Influenza Vaccine: Jan 28, 2014 Seasonal Allergies Seasonal Allergies: No Past Medical History Surgeries: Yes (MMK) Adenoidectomy, Bladder Surgery, Section, Gallbladder, Hysterectomy, Tonsillectomy Respiratory: Yes Asthma Cardiac: Yes Hypertension Neurological: No 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 Sexually Transmitted Disease: No HIV/AIDS: No Genitourinary: No Gastrointestinal: No Musculoskeletal: Yes Arthritis, Chronic Back Pain Endocrine: Yes Hypothyroidsim Cancer: No Psychosocial: Yes (EXTENSIVE PSYCH ISSUES--HX OF NON-COMPLIANCE) Sleep Difficulties, Anxiety, PTSD, Depression Integumentary: No Blood Disorders: No Family Medical History Reviewed Nursing Family Hx No Pertinent Family Hx Physical Exam Vital Signs - First Documented 01/23/19 08:28 Temp 36.8 Pulse 85 Resp 16 B/P (MAP) 142/97 (112) Pulse Ox 97 O2 Delivery Room Air Capillary Refill : Less Than 3 Seconds Height: 5'2.00" Weight: 203lbs. oz. 92.966944cg; 37.00 BMI Method:Actual General Appearance: WD/WN, no apparent distress HEENT: PERRL/EOMI, TMs normal, pharynx normal, other (moderate bilateral nasal rhinorrhea that is clear and moderate nasal congestion with erythema.) Neck: full range of motion, supple, normal inspection Respiratory: lungs clear, normal breath sounds, other (coarse sounding cough) Cardiovascular: regular rate, rhythm, no murmur Gastrointestinal: non tender, soft Neurologic/Psychiatric: alert, oriented x 3 Progress/Results/Core Measures Suspected Sepsis Recent Fever Within 48 Hours: Yes Infection Criteria Present: Suspected New Infection New/Unexplained Altered Menta: No Sepsis Screen: No Definite Risk SIRS Temperature: Pulse: 85 Respiratory Rate: 16 Blood Pressure 142 /97 Mean: 112 Results/Orders Micro Results Microbiology 01/23/19 Influenza Types A,B Antigen ([facility]) - Final, Complete My Orders Orders - ESTEFANI CASTILLO MD Influenza A And B Antigens (01/23/19 08:44) Chest Pa/Lat (2 View) (01/23/19 08:55) Vital Signs/I&O 01/23/19 08:28 Temp 36.8 Pulse 85 Resp 16 B/P (MAP) 142/97 (112) Pulse Ox 97 O2 Delivery Room Air Capillary Refill : Less Than 3 Seconds Blood Pressure Mean: 112 Progress Note : Progress Note Seen and evaluated. Influenza screen done. Chest x-ray ordered. Monitor patient. 0935: Chest x-ray negative and so was influenza screen. Given the length of symptoms, we will initiate steroids and also azithromycin 5 day pack. She states that usually helps quite a bit. Discharged home with return precautions. Patient verbalize understanding of instructions and agreement with plan. Departure Impression Primary Impression: Upper respiratory infection Qualified Codes: J06.9 - Acute upper respiratory infection, unspecified Disposition: HOME, SELF-CARE Condition: Stable Departure-Patient Inst. Decision time for Depature: 09:36 Referrals: [facility] [place] Primary Care Physician Patient Instructions: Bacterial Upper Respiratory Infection, Adult (DC), Acute Bronchitis, Adult (DC) Add. Discharge Instructions: All discharge instructions reviewed with patient and/or family. Voiced understanding. Take medications as directed. Follow-up with your in a few days for recheck. Return for worsening pain, fever, vomiting, weakness, breathing problems or other concerns as needed. Continue to use your inhaler as needed per instructions. Drink plenty of fluids. Scripts Prednisone (Prednisone) 20 Mg Tab 40 MG PO DAILY, #10 TAB 0 Refills Prov: ESTEFANI CASTILLO MD 01/23/19 Azithromycin (Azithromycin) 250 Mg Tablet 250 MG PO UD, #6 TAB TAKE 2 TABLETS ON DAY ONE THEN TAKE 1 TABLET DAILY FOR FOUR MORE DAYS Prov: ESTEFANI CASTILLO MD 01/23/19 ESTEFANI CASTILLO MD Jan 23, 2019 09:02
--- NOTE | 2019-01-23 09:14 | Diagnostic Imaging Report ---
INDICATION: Cough, rhinorrhea and fever. PA and lateral views of the chest are obtained with comparison made study of 06/01/2016. FINDINGS: Heart size and pulmonary vascularity are within normal limits, and the lungs are clear, bilaterally. IMPRESSION: Unremarkable chest. Dictated by: Dictated on workstation # [id number]
[2019-01-23] MEDS ORDERED: AZIT250T12 PO (09:37)
[2019-01-23] MEDS ORDERED: PRD20T PO (09:37)
[2019-01-23 09:42] VITALS: BP 142/97
== END 2019-01-23 09:42 | disposition home or self-care (01) ==
LOC: EDUNIT# 08:18 → ER 08:21
DX: J06.9 Acute upper respiratory infection, unspecified (principal); I10 Essential (primary) hypertension; J45.909 Unspecified asthma, uncomplicated; E03.9 Hypothyroidism, unspecified; F41.9 Anxiety disorder, unspecified; F43.10 Post-traumatic stress disorder, unspecified; F32.9 Major depressive disorder, single episode, unspecified; Z90.89 Acquired absence of other organs; Z90.710 Acquired absence of both cervix and uterus; Z79.52 Long term (current) use of systemic steroids; Z88.5 Allergy status to narcotic agent; Z88.8 Allergy status to other drugs, medicaments and biological substances; Z79.51 Long term (current) use of inhaled steroids
CPT/HCPCS: 71046; 87804

== ENCOUNTER 2019-05-15 16:47 | Emergency (ER) | payer SELFPAY ==
[~2019-05-15] VITALS: Ht 160 cm; Wt 91.0 kg
[~2019-05-15 16:47] MED LIST changes: +AZIT250T12 PO; +PRD20T PO
--- NOTE | 2019-05-15 16:57 | ED General ---
General Chief Complaint: Cough/Cold/Flu Symptoms Stated Complaint: FLU SYMPTOMS Nursing Triage Note: PT STATES HAS HAD FEVER, COUGH COLD AND FLU SX. FEVER STARTED LAST PM Nursing Sepsis Screen: No Definite Risk Source of Information: Patient Exam Limitations: No Limitations History of Present Illness Date Seen by Provider: May 15, 2019 Time Seen by Provider: 16:57 Initial Comments Productive cough with wheezing for 3 weeks. History of asthma. No treatment as of yet. Last night she developed a fever, nausea vomiting diarrhea. Granddaughter had influenza about 3 weeks ago. Timing/Duration: Other (2 weeks) Severity: Moderate Associated Systoms: Cough, Fever/Chills, Nausea/Vomiting Allergies and Home Medications Allergies Coded Allergies: Prochlorperazine (Verified Allergy, 03/15/13) metoclopramide (Verified Allergy, 03/15/13) morphine (Verified Allergy, 03/15/13) promethazine (Verified Allergy, 03/15/13) tramadol (Verified Allergy, 03/15/13) Home Medications Acetaminophen with Codeine 1 Each Tablet, 1 EACH PO Q4H PRN for COUGH Prescribed by: SABI SUMNER on 05/15/191730 Albuterol Sulfate 18 Gm Hfa.aer.ad, Unknown Dose IH PRN, (Reported) Azithromycin 250 Mg Tablet, 250 MG PO UD TAKE 2 TABLETS ON DAY ONE THEN TAKE 1 TABLET DAILY FOR FOUR MORE DAYS Prescribed by: SABI SUMNER on 05/15/191730 Beclomethasone Dipropionate 8.7 Gm Aer.w.adap, 2 PUFF IH DAILY, (Reported) Levothyroxine Sodium 125 Mcg Tablet, 125 MCG PO DAILY, (Reported) Metoprolol Tartrate 50 Mg Tablet, 50 MG PO DAILY, (Reported) Montelukast Sodium 10 Mg Tablet, 10 MG PO HS, (Reported) Prednisone 20 Mg Tab, 40 MG PO DAILY Prescribed by: SABI SUMNER on 05/15/191730 Patient Home Medication List Home Medication List Reviewed: Yes Review of Systems Review of Systems Constitutional: see HPI, chills, fever EENTM: see HPI, nose congestion Respiratory: see HPI, cough, wheezing Cardiovascular: no symptoms reported Gastrointestinal: diarrhea, nausea, vomiting Genitourinary: no symptoms reported Musculoskeletal: no symptoms reported Skin: no symptoms reported Psychiatric/Neurological: No Symptoms Reported Past Kvuqodi-Zunxid-Pxgnja Hx Patient Social History Alcohol Use: Denies Use Recreational Drug Use: No Smoking Status: Never a Smoker Recent Foreign Travel: No Contact w/Someone Who Travel: No Recent Infectious Disease Expo: No Recent Hopitalizations: No Physical Abuse: No Sexual Abuse: No Immunizations Up To Date Date of Influenza Vaccine: Jan 28, 2014 Seasonal Allergies Seasonal Allergies: No Past Medical History Surgeries: Yes (MMK) Adenoidectomy, Bladder Surgery, Section, Gallbladder, Hysterectomy, Tonsillectomy Respiratory: Yes Asthma Cardiac: Yes Hypertension Neurological: No 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 Sexually Transmitted Disease: No HIV/AIDS: No Genitourinary: No Gastrointestinal: No Musculoskeletal: Yes Arthritis, Chronic Back Pain Endocrine: Yes Hypothyroidsim Cancer: No Psychosocial: Yes (EXTENSIVE PSYCH ISSUES--HX OF NON-COMPLIANCE) Sleep Difficulties, Anxiety, PTSD, Depression Integumentary: No Blood Disorders: No Family Medical History No Pertinent Family Hx Physical Exam Vital Signs Vital Signs - First Documented 05/15/19 05/15/19 16:51 16:55 Temp 36.6 Pulse 79 Resp 18 B/P (MAP) 123/84 (97) Pulse Ox 100 O2 Delivery Room Air Capillary Refill : Less Than 3 Seconds Height, Weight, BMI Height: 5'2.00" Weight: 203lbs. oz. 92.114185ar; 35.00 BMI Method:Actual General Appearance: No Apparent Distress, WD/WN Eyes: Bilateral Eye Normal Inspection, Bilateral Eye PERRL, Bilateral Eye EOMI HEENT: PERRL/EOMI, TMs Normal Neck: Full Range of Motion, Normal Inspection Respiratory: No Accessory Muscle Use, No Respiratory Distress, Wheezing Gastrointestinal: Normal Bowel Sounds, Non Tender, Soft Extremity: Normal Capillary Refill, Normal Inspection Neurologic/Psychiatric: Alert, Oriented x3 Skin: Normal Color, Warm/Dry Progress/Results/Core Measures Suspected Sepsis Recent Fever Within 48 Hours: Yes Infection Criteria Present: None New/Unexplained Altered Menta: No Sepsis Screen: No Definite Risk SIRS Temperature: Pulse: 79 Respiratory Rate: 18 Blood Pressure 123 /84 Mean: 97 Results/Orders Micro Results Microbiology 05/15/19 Influenza Types A,B Antigen ([facility]) - Final, Complete My Orders Orders - SABI SUMNER SPRAY RIG OPERATOR Influenza A And B Antigens (05/15/19 16:56) Albuterol/Ipra Inhalation Soln (Duoneb I (05/15/19 17:15) Svn Small Volume Nebulizer (05/15/19 17:04) Chest Pa/Lat (2 View) (05/15/19 17:04) Acetaminophen/Codeine Tablet (Tylenol W/ (05/15/19 17:15) Prednisone Tablet (Deltasone Tablet) (05/15/19 17:15) Medications Given in ED Vital Signs/I&O Capillary Refill : Less Than 3 Seconds Blood Pressure Mean: 97 Departure Impression Primary Impression: Bronchitis Disposition: 01 HOME, SELF-CARE Condition: Stable Departure-Patient Inst. Decision time for Depature: 17:30 Referrals: [facility] (PCP/Family) Primary Care Physician Patient Instructions: Acute Bronchitis, Adult (DC) Add. Discharge Instructions: 1. Medication as directed 2. Return to ER for any concerns or worsening symptoms 3. Follow-up with your doctor next week for recheck. All discharge instructions reviewed with patient and/or family. Voiced understanding. Scripts Acetaminophen with Codeine (Tylenol with Codeine #3 Tablet) 1 Each Tablet 1 EACH PO Q4H PRN for COUGH for 7 Days, #14 TAB Prov: SABI SUMNER APRN 05/15/19 Azithromycin (Azithromycin) 250 Mg Tablet 250 MG PO UD, #6 TAB TAKE 2 TABLETS ON DAY ONE THEN TAKE 1 TABLET DAILY FOR FOUR MORE DAYS Prov: SABI SUMNER APRN 05/15/19 Prednisone (Prednisone) 20 Mg Tab 40 MG PO DAILY, #6 TAB 0 Refills Prov: SABI SUMNER APRN 05/15/19 Work/School Note: Work Release Form Date Seen in the Emergency Department: May 15, 2019 Return to Work: May 17, 2019 SABI SUMNER APRN May 15, 2019 16:57
[2019-05-15] MEDS ORDERED: METF500T19 (16:58)
[2019-05-15] MEDS ORDERED: APAP 300 MG/CODEINE 30 MG (TYLENOL #3) TAB PO ONE (17:15)
[2019-05-15] MEDS ORDERED: predniSONE 20 MG TAB PO ONE (17:15)
[2019-05-15] MEDS ORDERED: RT-ALBUTEROL/IPRATROPIUM 3 ML (DUONEB) VIAL INH ONE (17:15)
--- NOTE | 2019-05-15 17:26 | Diagnostic Imaging Report ---
CLINICAL INDICATION: Patient with cough and wheezing approximately 2 weeks. Exam: Chest x-ray PA and lateral views. Comparisons: Chest x-ray dated 01/23/2019. Findings: Lungs/pleura: Lungs are clear. There is no pneumothorax. There is no pleural effusion. Mediastinum: Unremarkable. Pulmonary vasculature: Unremarkable. Heart: Unremarkable. Bones/extrathoracic soft tissue: Surgical clips are seen overlying the right upper quadrant which could be related to cholecystectomy changes. Bones show no significant interval abnormality. Impression: There is no radiographic evidence of acute cardiopulmonary process. Dictated by: Dictated on workstation # [id number]
[2019-05-15] MEDS ORDERED: PRD20T PO (17:31)
[2019-05-15] MEDS ORDERED: AZIT250T12 PO (17:31)
[2019-05-15] MEDS ORDERED: ACET-789 PO (17:31)
[2019-05-15 17:35] VITALS: BP 123/84
== END 2019-05-15 17:35 | disposition home or self-care (01) ==
LOC: EDUNIT# 16:47 → ER 16:48
DX: J45.909 Unspecified asthma, uncomplicated (principal); I10 Essential (primary) hypertension; E03.9 Hypothyroidism, unspecified; F41.9 Anxiety disorder, unspecified; F43.10 Post-traumatic stress disorder, unspecified; Z90.710 Acquired absence of both cervix and uterus; Z88.5 Allergy status to narcotic agent; Z88.8 Allergy status to other drugs, medicaments and biological substances; Z90.89 Acquired absence of other organs
CPT/HCPCS: 71046; 87804; 94640

== ENCOUNTER 2019-05-20 07:24 | Emergency (ER) | payer SELFPAY ==
[~2019-05-20] VITALS: Ht 157 cm; Wt 96.5 kg
[~2019-05-20 07:24] MED LIST changes: +ACET-789 PO; +METF500T19
[2019-05-20] MEDS ORDERED: NS IV 1000 ML 1,000 ML IV SCH (07:39)
[2019-05-20] MEDS ORDERED: ONDANSETRON 4 MG/2 ML (SDV) Z0FRAN IVP ONE (07:45)
[2019-05-20 07:46] LABS: BASOPHILS % (AUTO) 0 % (0-10); EOSINOPHILS # (AUTO) 0.1 10^3/uL (0.0-0.3); EOSINOPHILS % (AUTO) 2 % (0-10); HEMATOCRIT 43 % (35-52); HEMOGLOBIN 14.7 G/DL (11.5-16.0); LYMPHOCYTES # (AUTO) 1.9 X 10^3 (1.0-4.0); LYMPHOCYTES % (AUTO) 32 % (12-44); MEAN CORPUSCULAR HEMOGLOBIN 29 PG (25-34); MEAN CORPUSCULAR HGB CONC 34 G/DL (32-36); MEAN CORPUSCULAR VOLUME 84 FL (80-99); MEAN PLATELET VOLUME 11.4 FL (7.4-10.4); MONOCYTES # (AUTO) 0.9 X 10^3 (0.0-1.0); MONOCYTES % (AUTO) 15 % (0-12); NEUTROPHILS % (AUTO) 51 % (42-75); PLATELET COUNT 210 10^3/uL (130-400); WHITE BLOOD COUNT 5.8 10^3/uL (4.3-11.0)
[2019-05-20 08:10] LABS: ALANINE AMINOTRANSFERASE 23 U/L (0-55); ALBUMIN 4.5 GM/DL (3.2-4.5); ALKALINE PHOSPHATASE 134 U/L (40-136); BILIRUBIN,TOTAL 0.7 MG/DL (0.1-1.0); BUN/CREATININE RATIO 12; CALCIUM 9.7 MG/DL (8.5-10.1); CARBON DIOXIDE 23 MMOL/L (21-32); CHLORIDE 107 MMOL/L (98-107); CREATININE SERUM 0.97 MG/DL (0.60-1.30); GFR ESTIMATED > 60; GLUCOSE 112 MG/DL (70-105); MAGNESIUM 1.7 MG/DL (1.6-2.4); POTASSIUM 3.6 MMOL/L (3.6-5.0); SODIUM 141 MMOL/L (135-145); TOTAL PROTEIN 7.8 GM/DL (6.4-8.2)
--- NOTE | 2019-05-20 08:31 | Diagnostic Imaging Report ---
INDICATION: Lower respiratory infection. PA and lateral chest. FINDINGS: Heart size and pulmonary vascularity are normal. Lungs are clear. There are no effusions or pneumothoraces. IMPRESSION: Negative chest. Dictated by: Dictated on workstation # [id number]
[2019-05-20 08:56] LABS: CLARITY,URINE SL CLOUDY; COLOR,URINE AMBER; GLUCOSE, URINE (UA) NEGATIVE (NEGATIVE); KETONES,URINE NEGATIVE (NEGATIVE); LEUKOCYTE ESTERASE ,URINE NEGATIVE (NEGATIVE); NITRITE,URINE NEGATIVE (NEGATIVE); PH,URINE 5.5 (5-9); PROTEIN,URINE NEGATIVE (NEGATIVE)
[2019-05-20 09:13] LABS: BACTERIA,URINE FEW /HPF; BILIRUBIN,URINE 1+ (NEGATIVE); CALCIUM OXALATE CRYSTALS,UR MODERATE /LPF; SQUAMOUS EPITHELIAL CELL,UR 25-50 /HPF
--- NOTE | 2019-05-20 10:16 | ED General ---
General Chief Complaint: Abdominal/GI Problems Stated Complaint: ABD PAIN;FEVER;N/V/D;WEAKNESS;DIZZINESS Nursing Triage Note: STATES SHE WAS SEEN HERE ON SUNDAY ET DX WITH BRONCHITIS ET FLU NEG. STATES SHE HAS BEEN WORSE SINCE THE WEEKEND ET WITH N/V, COUGH, ET FEVER. Nursing Sepsis Screen: No Definite Risk Source of Information: Patient Exam Limitations: No Limitations History of Present Illness Date Seen by Provider: May 20, 2019 Time Seen by Provider: 07:30 Initial Comments This 43-year-old woman presents to the emergency room with complaints of nausea, vomiting, cough, wheezing, and shortness of breath. She was seen in this ER about 5 days ago and was diagnosed with bronchitis. She's been using her inhaler. In the interim she has developed the nausea and vomiting. She is afebrile on presentation. No blood in her stools or emesis. Allergies and Home Medications Allergies Coded Allergies: Prochlorperazine (Verified Allergy, 03/15/13) metoclopramide (Verified Allergy, 03/15/13) morphine (Verified Allergy, 03/15/13) promethazine (Verified Allergy, 03/15/13) tramadol (Verified Allergy, 03/15/13) Home Medications Acetaminophen with Codeine 1 Each Tablet, 1 EACH PO Q4H PRN for COUGH Prescribed by: SABI SUMNER on 05/15/19 1731 Albuterol Sulfate 18 Gm Hfa.aer.ad, Unknown Dose IH PRN, (Reported) Azithromycin 250 Mg Tablet, 250 MG PO UD TAKE 2 TABLETS ON DAY ONE THEN TAKE 1 TABLET DAILY FOR FOUR MORE DAYS Prescribed by: SABI SUMNER on 05/15/19 1731 Beclomethasone Dipropionate 8.7 Gm Aer.w.adap, 2 PUFF IH DAILY, (Reported) Cephalexin 500 Mg Tablet, 500 MG PO BID Prescribed by: ESTEFANI CASTILLO on 05/22/19 1047 Levothyroxine Sodium 125 Mcg Tablet, 125 MCG PO DAILY, (Reported) Metoprolol Tartrate 50 Mg Tablet, 50 MG PO DAILY, (Reported) Montelukast Sodium 10 Mg Tablet, 10 MG PO HS, (Reported) Ondansetron 4 Mg Tab.rapdis, 4 MG SL Q4H Prescribed by: LILIANA HARVEY on 05/20/19 1023 Prednisone 20 Mg Tab, 40 MG PO DAILY Prescribed by: SABI SUMNER on 05/15/19 1731 Patient Home Medication List Home Medication List Reviewed: Yes Review of Systems Review of Systems Constitutional: see HPI EENTM: no symptoms reported Respiratory: see HPI Cardiovascular: no symptoms reported Gastrointestinal: see HPI Genitourinary: no symptoms reported : No Musculoskeletal: no symptoms reported Skin: no symptoms reported Psychiatric/Neurological: No Symptoms Reported Hematologic/Lymphatic: No Symptoms Reported Immunological/Allergic: no symptoms reported Past Pizotrx-Gftjio-Qgkhhw Hx Past Med/Social Hx: Reviewed Nursing Past Med/Soc Hx Patient Social History Alcohol Use: Denies Use Recreational Drug Use: No Smoking Status: Never a Smoker Recent Foreign Travel: No Contact w/Someone Who Travel: No Recent Infectious Disease Expo: No Recent Hopitalizations: No Immunizations Up To Date Date of Influenza Vaccine: Jan 28, 2014 Seasonal Allergies Seasonal Allergies: No Past Medical History Surgeries: Yes (MMK) Adenoidectomy, Bladder Surgery, Section, Gallbladder, Hysterectomy, Tonsillectomy Respiratory: Yes (RECNET BRONCHITIS) Asthma Cardiac: Yes Hypertension Neurological: No 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 Sexually Transmitted Disease: No HIV/AIDS: No Genitourinary: No Gastrointestinal: No Musculoskeletal: Yes Arthritis, Chronic Back Pain Endocrine: Yes Hypothyroidsim Cancer: No Psychosocial: Yes (EXTENSIVE PSYCH ISSUES--HX OF NON-COMPLIANCE) Sleep Difficulties, Anxiety, PTSD, Depression Integumentary: No Blood Disorders: No Family Medical History No Pertinent Family Hx Physical Exam Vital Signs Vital Signs - First Documented 05/20/19 07:28 Temp 36.6 Pulse 103 Resp 16 B/P (MAP) 119/82 (94) Pulse Ox 98 O2 Delivery Room Air Capillary Refill : Less Than 3 Seconds Height, Weight, BMI Height: 5'2.00" Weight: 203lbs. oz. 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 Norm as Tested Skin: Normal Color, Warm/Dry Progress/Results/Core Measures Suspected Sepsis Recent Fever Within 48 Hours: No Infection Criteria Present: None New/Unexplained Altered Menta: No Sepsis Screen: No Definite Risk SIRS Temperature: Pulse: 103 Respiratory Rate: 16 Laboratory Tests 05/20/19 07:35: White Blood Count 5.8 Blood Pressure 119 /82 Mean: 94 Laboratory Tests 05/20/19 07:35: Creatinine 0.97, Platelet Count 210, Total Bilirubin 0.7 Results/Orders Lab Results Micro Results My Orders Orders - LILIANA BYRD MD Iv Push Client Advisor Ed (05/20/19 ) Medications Given in ED Vital Signs/I&O Capillary Refill : Less Than 3 Seconds Blood Pressure Mean: 94 Point of Care Testing Finger Stick Blood Glucose: 106 Progress Note : Progress Note Patient received Zofran and IV fluids with good improvement. Chest x-ray was clear. Influenza screen was negative. Diagnostic Imaging Diagonstic Imaging: Xray Plain Films/CT/US/NM/MRI: chest Comments Chest x-ray viewed by me and report reviewed. See report below: NAME: LAMAR RAYA [facility] REC#: [id number] PT STATUS: REG ER : 1975 PHYSICIAN: LILIANA BYRD MD ADMIT DATE: 05/20/19/ER Signed Date of Exam:05/20/19 CHEST PA/LAT (2 VIEW) INDICATION: Lower respiratory infection. PA and lateral chest. FINDINGS: Heart size and pulmonary vascularity are normal. Lungs are clear. There are no effusions or pneumothoraces. IMPRESSION: Negative chest. Dictated by: Dictated on workstation # [id number] Dict: 05/20/19828 Trans: 05/20/19 0950 [id number] Interpreted by: ESTEFANI HANEY MD Electronically signed by: ESTEFANI HANEY MD 05/20/19 0950 Departure Impression Primary Impression: Nausea and vomiting Qualified Codes: R11.2 - Nausea with vomiting, unspecified Additional Impression: Acute bronchitis Qualified Codes: J20.9 - Acute bronchitis, unspecified Disposition: HOME, SELF-CARE Condition: Improved Departure-Patient Inst. Decision time for Depature: 10:15 Referrals: NO,LOCAL PHYSICIAN (PCP/Family) Primary Care Physician Patient Instructions: Acute Bronchitis, Nausea and Vomiting, Adult Add. Discharge Instructions: Start with a clear liquid diet today. Drink plenty of liquids. Later in the day you may try small quantities of bland food as tolerated. Advance diet as able. You may take Tylenol and/or ibuprofen for discomfort. Use Zofran (ondansetron) as prescribed for nausea and vomiting. Continue to use your inhaled breathing treatments for wheezing and shortness of breath. Return to the emergency room if you have worsening symptoms despite these measures. All discharge instructions reviewed with patient and/or family. Voiced underst anding. Scripts Ondansetron (Ondansetron Odt) 4 Mg Tab.rapdis 4 MG SL Q4H, #10 TAB Prov: LILIANA BYRD MD 05/20/19 LILIANA BYRD MD May 20, 2019 10:16
[2019-05-20] MEDS ORDERED: ONDA4TAB11 SL (10:23)
[2019-05-20 10:24] VITALS: BP 119/82
== END 2019-05-20 10:24 | disposition home or self-care (01) ==
LOC: EDUNIT# 07:24 → ER 07:25
DX: R11.2 Nausea with vomiting, unspecified (principal); J20.9 Acute bronchitis, unspecified; J45.909 Unspecified asthma, uncomplicated; I10 Essential (primary) hypertension; E03.9 Hypothyroidism, unspecified; F41.9 Anxiety disorder, unspecified; F43.10 Post-traumatic stress disorder, unspecified; F32.9 Major depressive disorder, single episode, unspecified; Z88.5 Allergy status to narcotic agent; Z88.8 Allergy status to other drugs, medicaments and biological substances; Z90.89 Acquired absence of other organs; Z90.710 Acquired absence of both cervix and uterus
CPT/HCPCS: 36415; 71046; 80053; 81000; 82962; 83735; 85025; 86141; 87804; 96361; 96374

== ENCOUNTER 2019-05-22 07:25 | Emergency (ER) | payer SELFPAY ==
[~2019-05-22] VITALS: Ht 160 cm; Wt 96.5 kg
[~2019-05-22 07:25] MED LIST changes: +ONDA4TAB11 SL
[2019-05-22] MEDS ORDERED: LACTATED RINGERS 1,000 ML IV ONE (08:17)
[2019-05-22 08:32] LABS: BASOPHILS % (AUTO) 0 % (0-10); BILIRUBIN,URINE NEGATIVE (NEGATIVE); CLARITY,URINE SL CLOUDY; COLOR,URINE YELLOW; EOSINOPHILS # (AUTO) 0.2 10^3/uL (0.0-0.3); EOSINOPHILS % (AUTO) 4 % (0-10); GLUCOSE, URINE (UA) NEGATIVE (NEGATIVE); HEMATOCRIT 42 % (35-52); HEMOGLOBIN 14.1 G/DL (11.5-16.0); KETONES,URINE NEGATIVE (NEGATIVE); LEUKOCYTE ESTERASE ,URINE NEGATIVE (NEGATIVE); LYMPHOCYTES # (AUTO) 2.1 X 10^3 (1.0-4.0); LYMPHOCYTES % (AUTO) 39 % (12-44); MEAN CORPUSCULAR HEMOGLOBIN 28 PG (25-34); MEAN CORPUSCULAR HGB CONC 34 G/DL (32-36); MEAN CORPUSCULAR VOLUME 83 FL (80-99); MEAN PLATELET VOLUME 11.3 FL (7.4-10.4); MONOCYTES # (AUTO) 0.6 X 10^3 (0.0-1.0); MONOCYTES % (AUTO) 10 % (0-12); NEUTROPHILS # (AUTO) 2.6 X 10^3 (1.8-7.8); NEUTROPHILS % (AUTO) 47 % (42-75); NITRITE,URINE POSITIVE (NEGATIVE); PH,URINE 5.5 (5-9); PLATELET COUNT 211 10^3/uL (130-400); PROTEIN,URINE NEGATIVE (NEGATIVE); RED CELL DISTRIBUTION WIDTH 13.9 % (10.0-14.5); WHITE BLOOD COUNT 5.5 10^3/uL (4.3-11.0)
[2019-05-22 08:40] LABS: BACTERIA,URINE FEW /HPF
[2019-05-22 08:51] LABS: ALANINE AMINOTRANSFERASE 22 U/L (0-55); ALBUMIN 4.6 GM/DL (3.2-4.5); ALKALINE PHOSPHATASE 124 U/L (40-136); BILIRUBIN,TOTAL 0.7 MG/DL (0.1-1.0); BUN/CREATININE RATIO 10; CALCIUM 9.6 MG/DL (8.5-10.1); CARBON DIOXIDE 25 MMOL/L (21-32); CHLORIDE 105 MMOL/L (98-107); CREATININE SERUM 0.91 MG/DL (0.60-1.30); GFR ESTIMATED > 60; GLUCOSE 104 MG/DL (70-105); MAGNESIUM 1.8 MG/DL (1.6-2.4); POTASSIUM 3.3 MMOL/L (3.6-5.0); SODIUM 143 MMOL/L (135-145); TOTAL PROTEIN 7.9 GM/DL (6.4-8.2)
--- NOTE | 2019-05-22 09:18 | ED Abdominal Pain ---
General Chief Complaint: Abdominal/GI Problems Stated Complaint: R SIDE PAIN;BLOOD IN STOOL Nursing Triage Note: PT AMBULATED TO ROOM 10 PT CO OF R LOWER ABD PAIN INTERMITTENT SHOOTING PAIN, DARK STOOLS X2 AND BRIGHT RED BLOOD THIS AM SMALL AMOUNT Sepsis Screen: No Definite Risk Source of Information: Patient Exam Limitations: No Limitations History of Present Illness Date Seen by Provider: May 22, 2019 Time Seen by Provider: 09:04 Initial Comments Here with report of bloody stool or dark stool that has occurred over the last 12-24 hours. Started with 2 dark stools and then had blood this morning. She now remembers that she ate vegetable soup with tomatoes in the red stuff that she noted maybe actually been tomatoes. Does complain of right lower quadrant abdominal pain as well as suprapubic fullness and tenderness. Timing/Duration: 24 Hours, 1 Week (abdominal pain), Changing Over Time Severity/Quality: Moderate, Aching, Sharp Location: RLQ, Suprapubic Radiation: No Radiation Modifying Factors: Worsens With Movement Associated Symptoms: No Chest Pain, No Fever/Chills, No Nausea/Vomiting, No Shortness of Air, No Weakness Allergies and Home Medications Allergies Coded Allergies: Prochlorperazine (Verified Allergy, 03/15/13) metoclopramide (Verified Allergy, 03/15/13) morphine (Verified Allergy, 03/15/13) promethazine (Verified Allergy, 03/15/13) tramadol (Verified Allergy, 03/15/13) Home Medications Acetaminophen with Codeine 1 Each Tablet, 1 EACH PO Q4H PRN for COUGH Prescribed by: SABI SUMNER on 05/15/19 173 Albuterol Sulfate 18 Gm Hfa.aer.ad, Unknown Dose IH PRN, (Reported) Azithromycin 250 Mg Tablet, 250 MG PO UD TAKE 2 TABLETS ON DAY ONE THEN TAKE 1 TABLET DAILY FOR FOUR MORE DAYS Prescribed by: SABI SUMNER on 05/15/19 1731 Beclomethasone Dipropionate 8.7 Gm Aer.w.adap, 2 PUFF IH DAILY, (Reported) Levothyroxine Sodium 125 Mcg Tablet, 125 MCG PO DAILY, (Reported) Metoprolol Tartrate 50 Mg Tablet, 50 MG PO DAILY, (Reported) Montelukast Sodium 10 Mg Tablet, 10 MG PO HS, (Reported) Ondansetron 4 Mg Tab.rapdis, 4 MG SL Q4H Prescribed by: LILIANA HARVEY on 05/20/19 1023 Prednisone 20 Mg Tab, 40 MG PO DAILY Prescribed by: SABI SUMNER on 05/15/19 1731 Patient Home Medication List Home Medication List Reviewed: Yes Review of Systems Review of Systems Constitutional: see HPI; No chills, No fever EENTM: No No Symptoms Reported Respiratory: Cough; Denies Shortness of Air Cardiovascular: No Symptoms Reported Gastrointestinal: Abdominal Pain; Denies Diarrhea, Denies Nausea, Denies Vomiting Genitourinary: Denies Hematuria; Pain Musculoskeletal: no symptoms reported Skin: no symptoms reported Psychiatric/Neurological: No Symptoms Reported Endocrine: No Symptoms Reported Past Gmkytdy-Brfqpi-Fnrwiq Hx Past Med/Social Hx: Reviewed Nursing Past Med/Soc Hx Patient Social History Alcohol Use: Denies Use Recreational Drug Use: No Smoking Status: Never a Smoker Recent Foreign Travel: No Contact w/Someone Who Travel: No Recent Infectious Disease Expo: No Recent Hopitalizations: No Immunizations Up To Date Date of Influenza Vaccine: Jan 28, 2014 Seasonal Allergies Seasonal Allergies: No Past Medical History Surgeries: Yes (MMK) Adenoidectomy, Bladder Surgery, Section, Gallbladder, Hysterectomy, Tonsillectomy Respiratory: Yes (RECNET BRONCHITIS) Asthma Cardiac: Yes Hypertension Neurological: No 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 Disorders: 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 (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) 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 Sexually Transmitted Disease: No HIV/AIDS: No Genitourinary: No Gastrointestinal: No Musculoskeletal: Yes Arthritis, Chronic Back Pain Endocrine: Yes Hypothyroidsim Cancer: No Psychosocial: Yes (EXTENSIVE PSYCH ISSUES--HX OF NON-COMPLIANCE) Sleep Difficulties, Anxiety, PTSD, Depression Integumentary: No Blood Disorders: No Family Medical History Reviewed Nursing Family Hx No Pertinent Family Hx Physical Exam Vital Signs Vital Signs - First Documented 05/22/19 08:15 Temp 36.5 Pulse 81 Resp 18 B/P (MAP) 139/98 (112) Pulse Ox 99 Capillary Refill : Less Than 3 Seconds Height/Weight/BMI Height: 5'2.00" Weight: 203lbs. oz. 92.851061ne; 37.00 BMI Method:Actual General Appearance: WD/WN, no apparent distress HEENT: PERRL/EOMI, pharynx normal Neck: full range of motion, supple Respiratory: lungs clear, normal breath sounds, other (coarse sounding cough) Cardiovascular: regular rate, rhythm, no murmur Peripheral Pulses: 2+ Dorsalis Pedis (R), 2+ Left Dors-Pedis (L), 2+ Radial Pulses (R), 2+ Radial Pulses (L) Gastrointestinal: soft; No guarding, No rebound; tenderness (mild suprapubic into a extent right lower quadrant) Extremities: non-tender, normal inspection Back: normal inspection, no CVA tenderness, no vertebral tenderness Neurologic/Psychiatric: alert, oriented x 3 Skin: normal color, warm/dry Progress/Results/Core Measures Results/Orders Lab Results Laboratory Tests Test 05/22/19 08:20 Range/Units White Blood Count 5.5 4.3-11.0 10^3/uL Red Blood Count 5.00 4.35-5.85 10^6/uL Hemoglobin 14.1 11.5-16.0 G/DL Hematocrit 42 35-52 % Mean Corpuscular Volume 83 80-99 FL Mean Corpuscular Hemoglobin 28 25-34 PG Mean Corpuscular Hemoglobin Concent 34 32-36 G/DL Red Cell Distribution Width 13.9 10.0-14.5 % Platelet Count 211 130-400 10^3/uL Mean Platelet Volume 11.3 H 7.4-10.4 FL Neutrophils (%) (Auto) 47 42-75 % Lymphocytes (%) (Auto) 39 12-44 % Monocytes (%) (Auto) 10 0-12 % Eosinophils (%) (Auto) 4 0-10 % Basophils (%) (Auto) 0 0-10 % Neutrophils # (Auto) 2.6 1.8-7.8 X 10^3 Lymphocytes # (Auto) 2.1 1.0-4.0 X 10^3 Monocytes # (Auto) 0.6 0.0-1.0 X 10^3 Eosinophils # (Auto) 0.2 0.0-0.3 10^3/uL Basophils # (Auto) 0.0 0.0-0.1 10^3/uL Urine Color YELLOW Urine Clarity SL CLOUDY Urine pH 5.5 5-9 Urine Specific [place] 1.020 1.016-1.022 Urine Protein NEGATIVE NEGATIVE Urine Glucose (UA) NEGATIVE NEGATIVE Urine Ketones NEGATIVE NEGATIVE Urine Nitrite POSITIVE NEGATIVE Urine Bilirubin NEGATIVE NEGATIVE Urine Urobilinogen 0.2 < = 1.0 MG/DL Urine Leukocyte Esterase NEGATIVE NEGATIVE Urine RBC (Auto) TRACE-I NEGATIVE Urine RBC NONE /HPF Urine WBC 5-10 H /HPF Urine Squamous Epithelial Cells 10-25 H /HPF Urine Crystals NONE /LPF Urine Bacteria FEW H /HPF Urine Casts NONE /LPF Urine Mucus NEGATIVE /LPF Urine Culture Indicated YES Sodium Level 143 135-145 MMOL/L Potassium Level 3.3 L 3.6-5.0 MMOL/L Chloride Level 105 98-107 MMOL/L Carbon Dioxide Level 25 21-32 MMOL/L Anion Gap 13 5-14 MMOL/L Blood Urea Nitrogen 9 7-18 MG/DL Creatinine 0.91 0.60-1.30 MG/DL Estimat Glomerular Filtration Rate > 60 BUN/Creatinine Ratio 10 Glucose Level 104 70-105 MG/DL Calcium Level 9.6 8.5-10.1 MG/DL Corrected Calcium 8.5-10.1 MG/DL Magnesium Level 1.8 1.6-2.4 MG/DL Total Bilirubin 0.7 0.1-1.0 MG/DL Aspartate Amino Transf (AST/SGOT) 22 5-34 U/L Alanine Aminotransferase (ALT/SGPT) 22 0-55 U/L Alkaline Phosphatase 124 40-136 U/L C-Reactive Protein High Sensitivity 1.29 H 0.00-0.50 MG/DL Total Protein 7.9 6.4-8.2 GM/DL Albumin 4.6 H 3.2-4.5 GM/DL My Orders Orders - ESTEFANI CASTILLO MD Ed Iv/Invasive Line Start (05/22/19 08:17) Lactated Ringers (Lr 1000 Ml Iv Solution (05/22/19 08:17) Cbc With Automated Diff (05/22/19 08:17) Comprehensive Metabolic Panel (05/22/19 08:17) Hs C Reactive Protein (05/22/19 08:17) Magnesium (05/22/19 08:17) Ua Culture If Indicated (05/22/19 08:17) Urine Culture (05/22/19 08:20) Ct Abdomen/Pelvis W (05/22/19 09:15) Iohexol Injection (Omnipaque 350 Mg/Ml 1 (05/22/19 09:45) Received Contrast (Hold Metformin- Contr (05/22/19 09:45) Ns (Ivpb) (Sodium Chloride 0.9% Ivpb Bag (05/22/19 09:45) Medications Given in ED Current Medications Medications Dose Ordered Sig/Lynn Route Start Time Stop Time Status Last Admin Dose Admin Iohexol 100 ml ONCE ONCE IV 05/22/19 09:45 05/22/19 09:47 DC 05/22/19 09:53 100 ML Lactated Ringer's 1,000 ml @ 0 mls/hr Q0M ONCE IV 05/22/19 08:17 05/22/19 08:19 DC 05/22/19 08:42 1,000 MLS/HR Sodium Chloride 100 ml ONCE ONCE IV 05/22/19 09:45 05/22/19 09:47 DC 05/22/19 09:54 80 ML Vital Signs/I&O 05/22/19 08:15 Temp 36.5 Pulse 81 Resp 18 B/P (MAP) 139/98 (112) Pulse Ox 99 Blood Pressure Mean: 112 Progress Progress Note : Progress Note Seen and evaluated. IV, labs, UA, LR 1 L bolus ordered. We will get CT abdomen and pelvis. Rectal exam performed shows no hemorrhoids, masses and was heme- negative stool. UA is positive but we will rule out appendicitis given her right lower quadrant pain. 1045: Overall improved. CT negative for appendicitis. Discharged home with return precautions. Patient verbalize understanding instructions and agreement with plan. Diagnostic Imaging Diagonstic Imaging: CT Plain Films/CT/US/NM/MRI: abdomen, pelvis Comments [facility] [place], [place] NAME: LAMAR RAYA [facility] REC#: [id number] PT STATUS: REG ER : 1975 PHYSICIAN: ESTEFANI CASTILLO MD ADMIT DATE: 05/22/19/ER Draft Date of Exam:05/22/19 CT ABDOMEN/PELVIS W CT ABDOMEN/PELVIS W PROCEDURE: CT abdomen and pelvis with contrast. TECHNIQUE: Multiple contiguous axial images were obtained through the abdomen and pelvis after administration of intravenous contrast. INDICATION: Right lower quadrant abdominal pain. COMPARISON: 06/10/2007 FINDINGS: There is low-density throughout the liver indicating hepatic steatosis. The gallbladder is surgically absent. There is no evidence of biliary ductal dilatation. No pancreatic, adrenal gland or splenic lesion identified. The kidneys are also unremarkable in appearance. There is no evidence of free fluid within the abdomen or pelvis. There is no evidence of appendiceal inflammation. Partially opacified urinary bladder is unremarkable. IMPRESSION: Hepatic steatosis without other evidence of acute abnormality within the abdomen or pelvis. Dictated on workstation # [id number] Dict: 05/22/19 1015 Trans: 05/22/19 1022 [facility] [id number] Interpreted by: EDIN JONES MD Electronically signed by: Departure Impression Primary Impression: Urinary tract infection Qualified Codes: N30.00 - Acute cystitis without hematuria Disposition: HOME, SELF-CARE Condition: Improved Departure-Patient Inst. Decision time for Depature: 10:46 Referrals: NO,LOCAL PHYSICIAN (PCP/Family) Primary Care Physician Patient Instructions: Urinary Tract Infection, Adult (DC) Add. Discharge Instructions: All discharge instructions reviewed with patient and/or family. Voiced understanding. Drink plenty of fluids. Follow up with your Dr. in a few days for recheck. Return for worse pain, fever, vomiting, weakness, breathing problems or other co ncerns as needed. You may continue Tylenol/acetaminophen alternating with ibuprofen as needed for fever or pain. Scripts Cephalexin (Cephalexin) 500 Mg Tablet 500 MG PO BID, #14 TAB 0 Refills Prov: ESTEFANI CASTILLO MD 05/22/19 ESTEFANI CASTILLO MD May 22, 2019 09:18
[2019-05-22] MEDS ORDERED: HOLD METFORMIN - RECEIVED CONTRAST 20 ML VIAL IV SCH (09:45)
[2019-05-22] MEDS ORDERED: NS 100 ML (IVPB) BAG IV ONE (09:45)
[2019-05-22] MEDS ORDERED: IOHEXOL 350 MG/ML 100 ML (OMNIPAQUE 350) VIAL IV ONE (09:45)
--- NOTE | 2019-05-22 10:23 | Diagnostic Imaging Report ---
CT ABDOMEN/PELVIS W PROCEDURE: CT abdomen and pelvis with contrast. TECHNIQUE: Multiple contiguous axial images were obtained through the abdomen and pelvis after administration of intravenous contrast. INDICATION: Right lower quadrant abdominal pain. COMPARISON: 06/10/2007 FINDINGS: There is low-density throughout the liver indicating hepatic steatosis. The gallbladder is surgically absent. There is no evidence of biliary ductal dilatation. No pancreatic, adrenal gland or splenic lesion identified. The kidneys are also unremarkable in appearance. There is no evidence of free fluid within the abdomen or pelvis. There is no evidence of appendiceal inflammation. Partially opacified urinary bladder is unremarkable. IMPRESSION: Hepatic steatosis without other evidence of acute abnormality within the abdomen or pelvis. Dictated by: Dictated on workstation # [id number]
[2019-05-22] MEDS ORDERED: CEPH500T PO (10:47)
[2019-05-22 11:00] VITALS: BP 116/67
== END 2019-05-22 11:06 | disposition home or self-care (01) ==
LOC: EDUNIT# 07:25 → ER 07:26
DX: N39.0 Urinary tract infection, site not specified (principal); J45.909 Unspecified asthma, uncomplicated; I10 Essential (primary) hypertension; F41.9 Anxiety disorder, unspecified; F43.10 Post-traumatic stress disorder, unspecified; F32.9 Major depressive disorder, single episode, unspecified; E03.9 Hypothyroidism, unspecified; Z88.8 Allergy status to other drugs, medicaments and biological substances; Z88.5 Allergy status to narcotic agent; Z90.89 Acquired absence of other organs; Z90.710 Acquired absence of both cervix and uterus
CPT/HCPCS: 36415; 74177; 80053; 81000; 82274; 83735; 85025; 86141; 87077; 87088; 87186

== ENCOUNTER 2019-06-05 07:48 | Emergency (ER) | payer OTHER ==
[~2019-06-05] VITALS: Ht 157 cm; Wt 97.9 kg
[~2019-06-05 07:48] MED LIST changes: +CEPH500T PO
[2019-06-05] MEDS ORDERED: CYCL10TA9 PO (08:53)
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
[2019-06-05] MEDS ORDERED: ONDA4TAB11 SL (08:55)
[2019-06-05 09:00] VITALS: BP 129/88
== END 2019-06-05 09:00 | disposition home or self-care (01) ==
LOC: EDUNIT# 07:48 → ER 07:49
DX: S29.012A Strain of muscle and tendon of back wall of thorax, initial encounter (principal); M54.5 Low back pain; R51 Headache; J45.909 Unspecified asthma, uncomplicated; I10 Essential (primary) hypertension; F41.9 Anxiety disorder, unspecified; F43.10 Post-traumatic stress disorder, unspecified; F32.9 Major depressive disorder, single episode, unspecified; Z88.8 Allergy status to other drugs, medicaments and biological substances; Z88.5 Allergy status to narcotic agent; Z88.6 Allergy status to analgesic agent; Z90.710 Acquired absence of both cervix and uterus; Z90.89 Acquired absence of other organs; V89.2XXA Person injured in unspecified motor-vehicle accident, traffic, initial encounter
CPT/HCPCS: 99282

== ENCOUNTER → 2020-08-24 | Outpatient (CLI) | payer SELFPAY ==
[~2020-08-24] MED LIST changes: +CYCL10TA9 PO; +METF-865; -METF500T19
== END ==
LOC: CARD 11:00
PROVIDERS: ATTEND Pediatrics
DX: R01.1 Cardiac murmur, unspecified (principal)
CPT/HCPCS: 93306

== ENCOUNTER 2021-01-08 12:47 | Emergency (ER) | payer SELFPAY ==
[~2021-01-08] VITALS: Ht 157 cm; Wt 98.4 kg
[~2021-01-08 12:47] MED LIST changes: +ASCO-262 PO; +CALC-250 PO; +FAMO20TA3 PO; +IBUP-2473 PO; +LEVO175C2 PO; +LOSA50TA63 PO; -SULF1TAB35 PO; +SULF1TAB38 PO; +ZINC220T3 PO
--- NOTE | 2021-01-08 13:09 | ED Lower Extremity ---
General Stated Complaint: R LEG S/P CATH PAIN Source: patient History of Present Illness Date Seen by Provider: Jan 08, 2021 Time Seen by Provider: 12:53 Initial Comments PT ARRIVES VIA POV FROM HOME PT HAD CARDIAC CATH DONE BY DR. STEVENSON ON 12/27/20--ESSENTIALLY NORMAL/NO INTERVENTION HAS HAD A BRUISE TO RIGHT UPPER AND MEDIAL THIGH SINCE THEN, AND HAS BEEN SORE STATES PAIN HAS BEEN WORSE THE LAST COUPLE OF DAYS--STATES SHE HAS "SHOOTING SHARP PAINS" DOWN MEDIAL ASPECT OF RIGHT THIGH, DISTAL TO EDGE OF BRUISE, AND STATES "BRUISE IS GETTING BIGGER AND GOING DOWN MY LEG" STATES NO PAIN OR SWELLING OR BRUISING OR BLEEDING AT PUNCTURE SITE STATES PAIN IS WORSE WITH WALKING OR WITH MOVING HER LEG TOOK IBUPROFEN X 1 YESTERDAY WITHOUT RELIEF OTHERWISE HAS NOT TAKEN ANYTHING FOR PAIN NO PARESTHESIAS OR MOTOR DEFICITS STATES SHE HAS SLIGHT SWELLING TO LEG AT TIMES NO BACK PAIN NO URINARY SYMPTOMS NO FEVER/SWEATS/CHILLS NO CHEST PAIN NO SHORTNESS OF BREATH NO PALPITATIONS NO DIZZINESS OR SYNCOPE HAS NOT ATTEMPTED TO CONTACT DR. STEVENSON OR SEEK CARE WITH ANYONE PRIOR TO TODAY ( SUNDAY) HAS A SCHEDULED FOLLOW UP WITH DR. STEVENSON ON Sunday01/11/21 PCP: [facility] CONFERENCE TRANSLATOR: DR. STEVENSON Allergies and Home Medications Allergies Coded Allergies: metoclopramide (Verified Allergy, Unknown, 08/24/20) morphine (Verified Allergy, Unknown, 08/24/20) prochlorperazine (Verified Allergy, Unknown, 08/24/20) promethazine (Verified Allergy, Unknown, 08/24/20) tramadol (Verified Allergy, Unknown, 08/24/20) Patient Home Medication List Home Medication List Reviewed: Yes Ascorbate Calcium (Vitamin C) 500 Mg Tablet, 500 MG PO DAILY, (Reported) Entered as Reported by: MARY KRUEGER on 12/27/201509 Cholecalciferol (Vitamin D3) (Vitamin D3) 125 Mcg Tablet, 125 MCG PO DAILY, (Reported) Entered as Reported by: MARY KRUEGER on 12/27/201509 Famotidine (Acid Pipe Assembly Worker (FAMOTIDINE)) 20 Mg Tablet, 20 MG PO HS, (Reported) Entered as Reported by: MARY KRUEGER on 12/27/201509 Ibuprofen (Ibuprofen) 200 Mg Tablet, 600 MG PO Q6H PRN for PAIN-MILD (1-4), (Reported) Entered as Reported by: MARY KRUEGER on 12/27/201509 Levothyroxine Sodium (Levothyroxine) 175 Mcg Capsule, 175 MCG PO DAILY, (Reported) Entered as Reported by: MARY KRUEGER on 12/27/201509 Losartan Potassium (Losartan Potassium) 50 Mg Tablet, 50 MG PO HS, (Reported) Entered as Reported by: MARY KRUEGER on 12/27/201509 Zinc Sulfate (Zinc) 50 Mg Tablet, 50 MG PO DAILY, (Reported) Entered as Reported by: MARY KRUEGER on 12/27/201509 Review of Systems Constitutional: no symptoms reported Respiratory: no symptoms reported Cardiovascular: no symptoms reported Gastrointestinal: no symptoms reported Genitourinary: no symptoms reported Musculoskeletal: see HPI Skin: no symptoms reported Psychiatric/Neurological: No Symptoms Reported Past Adgcdhu-Gxcbfl-Lrpalg Hx Immunizations Up To Date First/Initial COVID19 Vaccinat: 12/03/20 Second COVID19 Vaccination [place]: 12/24/20 Seasonal Allergies Seasonal Allergies: No Past Medical History Surgery/Hospitalization HX: TONSILLECTOMY/ADENOIDECTOMY CHOLECYSTECTOMY HYSTERECTOMY/BILATERAL SALPINGO-OOPHORECTOMY X 1 [facility] BLADDER SUSPENSION CARDIAC CATH BY DR. STEVENSON 12/28/20 -CONCLUSION: 1. No significant obstructive disease, slightly tortuous coronary system 2. 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 Sexually Transmitted Disease: No HIV/AIDS: No Genitourinary: No Gastrointestinal: No Musculoskeletal: Yes (CHRONIC NECK PAIN ) Arthritis, Chronic Back Pain Endocrine: Yes Hypothyroidsim Cancer: No Psychosocial: Yes (EXTENSIVE PSYCH ISSUES--HX OF NON-COMPLIANCE) Sleep Difficulties, Anxiety, PTSD, Depression Integumentary: No Blood Disorders: No Family Medical History CAD Under 55 Years Old, CVA, Stroke HISTORY OF NON-COMPLIANCE IN ALL ASPECTS OF CARE Physical Exam Vital Signs Vital Signs - First Documented 01/08/21 12:51 Temp 35.2 Pulse 93 Resp 14 B/P (MAP) 143/106 (118) Pulse Ox 98 O2 Delivery Room Air Capillary Refill : Height, Weight, BMI Height: 5'2.00" Weight: 203lbs. oz. 92.153443aw; 39.79 BMI Method:Actual General Appearance: WD/WN, no apparent distress, other (FULL HEAVY MAKE-UP, D OES NOT APPEAR TO BE IN ANY DISCOMFORT OR DISTRESS. TEXTING/PLAYING ON PHONE THROUGHOUT ER STAY. WALKS SLIGHTLY SLOWLY, BUT OTHERWISE WITHOUT DIFFICULTY) Cardiovascular: normal peripheral pulses, regular rate, rhythm, no edema, no JVD, no murmur Respiratory: normal breath sounds, no respiratory distress Gastrointestinal: non tender, soft Back: no CVA tenderness, no vertebral tenderness Hips: right hip non-tender, right hip normal inspection, right hip normal range of motion Legs: right leg other (1/3 OF RIGHT UPPER AND MEDIAL THIGH WITH OLD BRUISING. SLIGHTLY TENDER TO PALPATION. NO CORDING, NO MASSES, NO WARMTH OR ERYTHEMA. NO CALF TENDERNESS, NEGATIVE CATY'S. NO EDEMA. FULL ROM. PUNCTURE SITE TO RIGHT GROIN WITH NORMAL APPEARANCE WITH NO SIGNFICANT BRUISING, NO SWELLING, NO ERYTHEMA, NO BLEEDING, AND NON-TENDER. GOOD FEMORAL PULSE. 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 ) Progress/Results/Core Measures Results/Orders Lab Results Laboratory Tests Test 01/08/21 13:04 01/08/21 13:33 Range/Units White Blood Count 7.6 4.3-11.0 10^3/uL Red Blood Count 4.42 3.80-5.11 10^6/uL Hemoglobin 12.6 11.5-16.0 g/dL Hematocrit 38 35-52 % Mean Corpuscular Volume 87 80-99 fL Mean Corpuscular Hemoglobin 29 25-34 pg Mean Corpuscular Hemoglobin Concent 33 32-36 g/dL Red Cell Distribution Width 13.5 10.0-14.5 % Platelet Count 298 130-400 10^3/uL Mean Platelet Volume 10.6 9.0-12.2 fL Immature Granulocyte % (Auto) 0 % Neutrophils (%) (Auto) 53 42-75 % Lymphocytes (%) (Auto) 35 12-44 % Monocytes (%) (Auto) 8 0-12 % Eosinophils (%) (Auto) 4 0-10 % Basophils (%) (Auto) 0 0-10 % Neutrophils # (Auto) 4.0 1.8-7.8 10^3/uL Lymphocytes # (Auto) 2.6 1.0-4.0 10^3/uL Monocytes # (Auto) 0.6 0.0-1.0 10^3/uL Eosinophils # (Auto) 0.3 0.0-0.3 10^3/uL Basophils # (Auto) 0.0 0.0-0.1 10^3/uL Immature Granulocyte # (Auto) 0.0 0.0-0.1 10^3/uL Prothrombin Time 13.2 12.2-14.7 SEC INR Comment 1.0 0.8-1.4 Activated Partial Thromboplast Time 35 24-35 SEC D-Dimer 1.72 H 0.00-0.49 UG/ML Sodium Level 142 135-145 MMOL/L Potassium Level 3.4 L 3.6-5.0 MMOL/L Chloride Level 103 98-107 MMOL/L Carbon Dioxide Level 28 21-32 MMOL/L Anion Gap 11 5-14 MMOL/L Blood Urea Nitrogen 11 7-18 MG/DL Creatinine 1.03 0.60-1.30 MG/DL Estimat Glomerular Filtration Rate 57 BUN/Creatinine Ratio 11 Glucose Level 102 70-105 MG/DL Calcium Level 9.9 8.5-10.1 MG/DL Urine Color YELLOW Urine Clarity CLOUDY Urine pH 6.0 5-9 Urine Specific [place] 1.025 H 1.016-1.022 Urine Protein NEGATIVE NEGATIVE Urine Glucose (UA) NEGATIVE NEGATIVE Urine Ketones NEGATIVE NEGATIVE Urine Nitrite NEGATIVE NEGATIVE Urine Bilirubin NEGATIVE NEGATIVE Urine Urobilinogen 0.2 < = 1.0 MG/DL Urine Leukocyte Esterase NEGATIVE NEGATIVE Urine RBC (Auto) TRACE-I NEGATIVE Urine RBC 0-2 /HPF Urine WBC NONE /HPF Urine Squamous Epithelial Cells >50 H /HPF Urine Crystals NONE /LPF Urine Bacteria FEW H /HPF Urine Casts NONE /LPF Urine Mucus NEGATIVE /LPF Urine Culture Indicated NO My Orders Orders - GALO OROZCO DO Ed Iv/Invasive Line Start (01/08/21 12:57) Basic Metabolic Panel (01/08/21 12:57) Cbc With Automated Diff (01/08/21 12:57) Protime With Inr (01/08/21 12:57) Partial Thromboplastin Time (01/08/21 12:57) Ua Culture If Indicated (01/08/21 12:57) Us Right Low Ext [id number] (01/08/21 13:13) Fibrin Degradation Products (01/08/21 13:17) Vital Signs/I&O 01/08/21 01/08/21 12:51 15:38 Temp 35.2 Pulse 93 75 Resp 14 14 B/P (MAP) 143/106 (118) 117/89 Pulse Ox 98 100 O2 Delivery Room Air Room Air Progress Progress Note : Progress Note OFFERED PAIN MEDICATION IN ER AND RX FOR PAIN MEDICATION AND PT DECLINES DELAY IN OBTAINING RADIOLOGIST REPORT Diagnostic Imaging Comments ULTRASOUND RIGHT LEG--NO PSEUDOANEURYSM, NO FISTULA, NO CLOT IN ARTERY OR VEIN, NO FOCAL HEMATOMA OR FLUID COLLECTION, BUT FINDINGS CONSISTENT WITH BRUISING/DIFFUSE HEMATOMA THROUGHOUT TISSUES --PER TECH REPORT AT 1425 AND RADIOLOGIST REPORT AT 1522 FINDINGS: There is no evidence of pseudoaneurysm or AV fistula. There is a diffuse hematoma about the right groin. Right common femoral artery and vein remain patent. IMPRESSION: Diffuse right groin hematoma, however, no evidence of pseudoaneurysm or AV fistula. Reviewed: Reviewed by Me Departure Impression Primary Impression: POST CARDAC CATH BRUISING AND PAIN Disposition: 01 HOME, SELF-CARE Condition: Stable Departure-Patient Inst. Decision time for Depature: 15:22 Referrals: [facility] ([facility]P) Primary Care Physician NIVIA SKINNER APRN (Family) Primary Care Physician Patient Instructions: HEMATOMA, Taking Care of Bruises Add. Discharge Instructions: MOIST HEAT TO AREA AT 20 MINUTE INTERVALS ACTIVITIES TOLERATED TYLENOL 1 GRAM/ MOTRIN 800 MG 4 TIMES A DAY FOR PAIN KEEP YOUR APPOINTMENT WITH DR. STEVENSON ON SUNDAY GALO OROZCO DO Jan 08, 2021 13:09
[2021-01-08 13:15] LABS: BASOPHILS % (AUTO) 0 % (0-10); EOSINOPHILS # (AUTO) 0.3 10^3/uL (0.0-0.3); EOSINOPHILS % (AUTO) 4 % (0-10); HEMATOCRIT 38 % (35-52); HEMOGLOBIN 12.6 g/dL (11.5-16.0); LYMPHOCYTES # (AUTO) 2.6 10^3/uL (1.0-4.0); LYMPHOCYTES % (AUTO) 35 % (12-44); MEAN CORPUSCULAR HEMOGLOBIN 29 pg (25-34); MEAN CORPUSCULAR HGB CONC 33 g/dL (32-36); MEAN CORPUSCULAR VOLUME 87 fL (80-99); MEAN PLATELET VOLUME 10.6 fL (9.0-12.2); MONOCYTES # (AUTO) 0.6 10^3/uL (0.0-1.0); MONOCYTES % (AUTO) 8 % (0-12); NEUTROPHILS % (AUTO) 53 % (42-75); PLATELET COUNT 298 10^3/uL (130-400); WHITE BLOOD COUNT 7.6 10^3/uL (4.3-11.0)
[2021-01-08 13:30] LABS: POTASSIUM 3.4 MMOL/L (3.6-5.0); PROTHROMBIN TIME PATIENT 13.2 SEC (12.2-14.7)
[2021-01-08 13:31] LABS: CALCIUM 9.9 MG/DL (8.5-10.1)
[2021-01-08 13:36] LABS: CREATININE SERUM 1.03 MG/DL (0.60-1.30)
[2021-01-08 13:48] LABS: BILIRUBIN,URINE NEGATIVE (NEGATIVE); CLARITY,URINE CLOUDY; COLOR,URINE YELLOW; GLUCOSE, URINE (UA) NEGATIVE (NEGATIVE); KETONES,URINE NEGATIVE (NEGATIVE); LEUKOCYTE ESTERASE ,URINE NEGATIVE (NEGATIVE); NITRITE,URINE NEGATIVE (NEGATIVE); PROTEIN,URINE NEGATIVE (NEGATIVE)
[2021-01-08 14:03] LABS: BACTERIA,URINE FEW /HPF; RBC,URINE 0-2 /HPF; SQUAMOUS EPITHELIAL CELL,UR >50 /HPF
--- NOTE | 2021-01-08 15:20 | Diagnostic Imaging Report ---
INDICATION: Right groin pain and bruising status post catheterization. TECHNIQUE: Multiple real-time grayscale images were obtained of the right groin in various projections. FINDINGS: There is no evidence of pseudoaneurysm or AV fistula. There is a diffuse hematoma about the right groin. Right common femoral artery and vein remain patent. IMPRESSION: Diffuse right groin hematoma, however, no evidence of pseudoaneurysm or AV fistula. Dictated by: Dictated on workstation # [id number]
[2021-01-08 15:38] VITALS: BP 117/89
== END 2021-01-08 15:41 | disposition home or self-care (01) ==
LOC: EDUNIT# 12:47 → ER 12:49
DX: I97.630 Postprocedural hematoma of a circulatory system organ or structure following a cardiac catheterization (principal); J45.909 Unspecified asthma, uncomplicated; I10 Essential (primary) hypertension; E03.9 Hypothyroidism, unspecified; Z79.890 Hormone replacement therapy; Z79.899 Other long term (current) drug therapy
CPT/HCPCS: 36415; 80048; 81000; 85025; 85379; 85610; 85730; 93926

== ENCOUNTER 2023-03-10 12:59 | Emergency (ER) | payer MEDICAID ==
[~2023-03-10] VITALS: Ht 157 cm; Wt 100.2 kg
[~2023-03-10 12:59] MED LIST changes: +CYCL10TA25 PO; -CYCL10TA9 PO; +FAMO-356 PO; -FAMO20TA3 PO; +MONT-47 PO
[2023-03-10] MEDS ORDERED: KETOROLAC INJ 30 MG/ML VIAL IVP STA (13:40)
[2023-03-10] MEDS ORDERED: NS IV 1000 ML 1,000 ML IV STA (13:40)
--- NOTE | 2023-03-10 13:57 | ED General ---
General Chief Complaint: Chest Wall Stated Complaint: RIB AND BACK PAIN Nursing Triage Note: pt presents to ed via pov from home with complaints of r sided pain/rib pain for several days. pt reports pain is worse when she does not held pressure against r side. pt denies n/v/d or urinary s/s. Source of Information: Patient Exam Limitations: No Limitations History of Present Illness Date Seen by Provider: Mar 10, 2023 Time Seen by Provider: 13:29 Initial Comments Here with report of right-sided upper abdominal pain that radiates to the flank and back has been going on for 4 months intermittently but more persistent over the last several days. States when she gets the pain, pressure to the area helps resolve the pain. She states that if she lies on it or uses a pillow against it it helps. Pain is worse with sitting and palpation anteriorly. Denies nausea, vomiting or diarrhea. Denies dysuria. Denies fever or chills. She has had previous cholecystectomy. She just had heart cath on February 28 at [facility] and found to have normal coronary arteries but does have some mild pulmonary hypertension. This is similar to heart cath results noted from [address] Trevino here. That cardiology note was reviewed. She also had echocardiogram with EF of 55-65 and slightly elevated pulmonary pressure in the range of 15-20 per echo report in 2020 as well. Patient denies recent injury. She does admit to history of diverticulosis without diverticulitis. Reports taking her meds as directed. She did try naproxen this morning and that helped a little bit and she does do that intermittent but rarely as she does not like to take medications. Timing/Duration: Other (4 months intermittent and 4 to 5 days more persistent) Severity: Moderate Modifying Factors: worse with Movement; improves with Other (Standing improves and sitting worsens) Associated Systoms: No Cough, No Fever/Chills, No Nausea/Vomiting, No Shortness of Air, No Weakness Allergies and Home Medications Allergies Coded Allergies: metoclopramide (Verified Allergy, Unknown, 08/24/20) morphine (Verified Allergy, Unknown, 08/24/20) prochlorperazine (Verified Allergy, Unknown, 08/24/20) promethazine (Verified Allergy, Unknown, 08/24/20) tramadol (Verified Allergy, Unknown, 08/24/20) Patient Home Medication List Home Medication List Reviewed: Yes Ascorbate Calcium (Vitamin C) 500 Mg Tablet, 500 MG PO DAILY, (Reported) Entered as Reported by: MARY KRUEGER on 12/27/201509 Cholecalciferol (Vitamin D3) (Vitamin D3) 125 Mcg Tablet, 125 MCG PO DAILY, (Reported) Entered as Reported by: MARY KRUEGER on 12/27/201509 Famotidine (Acid Dispatcher Relay (FAMOTIDINE)) 20 Mg Tablet, 20 MG PO HS, (Reported) Entered as Reported by: MARY KRUEGER on 12/27/201509 Ibuprofen (Ibuprofen) 200 Mg Tablet, 600 MG PO Q6H PRN for PAIN-MILD (1-4), (Reported) Entered as Reported by: MARY KRUEGER on 12/27/201509 Levothyroxine Sodium (Levothyroxine) 175 Mcg Capsule, 175 MCG PO DAILY, (Reported) Entered as Reported by: MARY KRUEGER on 12/27/201509 Losartan Potassium (Losartan Potassium) 50 Mg Tablet, 50 MG PO HS, (Reported) Entered as Reported by: MARY KRUEGER on 12/27/201509 Zinc Sulfate (Zinc) 50 Mg Tablet, 50 MG PO DAILY, (Reported) Entered as Reported by: MARY KRUEGER on 12/27/201509 Review of Systems Review of Systems Constitutional: see HPI; No chills, No fever, No weakness EENTM: No nose congestion, No throat pain Respiratory: see HPI; No short of breath Cardiovascular: see HPI; No palpitations Gastrointestinal: No nausea, No vomiting Genitourinary: no symptoms reported Musculoskeletal: no symptoms reported Skin: No rash (Especially in area of pain no rash noted.) Psychiatric/Neurological: Anxiety; Denies Weakness Past Hclpgbw-Ajojrw-Erlqvb Hx Patient Social History Tobacco Use?: No Substance use?: No Alcohol Use?: No Pt feels they are or have been: No Immunizations Up To Date First/Initial COVID19 Vaccinat: 12/03/20 Second COVID19 Vaccination [place]: 12/24/20 Third COVID19 Vaccination Date: 12/03/20 Seasonal Allergies Seasonal Allergies: No Past Medical History Surgery/Hospitalization HX: TONSILLECTOMY/ADENOIDECTOMYCHOLECYSTECTOMYHYSTERECTOMY/BILATERAL [id number] X 1MMK BLADDER SUSPENSIONCARDIAC CATH BY DR. TREVINO 12/28/20-CONCLUSION:1. No significant obstructive disease, slightly tortuous coronary system2. 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 Sexually Transmitted Disease: No HIV/AIDS: No Genitourinary: No Gastrointestinal: No Musculoskeletal: Yes (CHRONIC NECK PAIN ) Arthritis, Chronic Back Pain Endocrine: Yes Hypothyroidsim Cancer: No Psychosocial: Yes (EXTENSIVE PSYCH ISSUES--HX OF NON-COMPLIANCE) Sleep Difficulties, Anxiety, PTSD, Depression Integumentary: No Blood Disorders: No Family Medical History Reviewed Nursing Family Hx CAD Under 55 Years Old, CVA, Stroke HISTORY OF NON-COMPLIANCE IN ALL ASPECTS OF CARE Physical Exam Vital Signs Vital Signs - First Documented 03/10/23 13:16 Temp 36.1 Pulse 88 Resp 16 B/P (MAP) 138/96 (110) Pulse Ox 99 Capillary Refill : Less Than 3 Seconds Height, Weight, BMI Height: 5'2.00" Weight: 203lbs. oz. [id number]; 40.00 BMI Method:Actual General Appearance: WD/WN, Mild Distress HEENT: PERRL/EOMI, Pharynx Normal Neck: Non Tender, Supple Respiratory: Lungs Clear, Normal Breath Sounds Cardiovascular: No Murmur, Tachycardia Gastrointestinal: Soft, Tenderness (Right upper quadrant mild tenderness to palpation without rebound or guarding. Pressure in the right upper quadrant creates pain in the right flank right back) Back: Normal Inspection, No CVA Tenderness, No Vertebral Tenderness Extremity: Normal Range of Motion, Non Tender, No Calf Tenderness, No Pedal Edema Neurologic/Psychiatric: Alert, Oriented x3 Progress/Results/Core Measures Suspected Sepsis SIRS Temperature: Pulse: 88 Respiratory Rate: 16 Laboratory Tests 03/10/23 13:50: White Blood Count 6.9 Blood Pressure 138 /96 Mean: 110 Laboratory Tests 03/10/23 13:50: Creatinine 1.08, Platelet Count 265, Total Bilirubin 0.7 Results/Orders Lab Results Laboratory Tests Test 03/10/23 13:50 03/10/23 13:54 Range/Units White Blood Count 6.9 4.3-11.0 10^3/uL Red Blood Count 4.80 3.80-5.11 10^6/uL Hemoglobin 13.2 11.5-16.0 g/dL Hematocrit 40 35-52 % Mean Corpuscular Volume 83 80-99 fL Mean Corpuscular Hemoglobin 28 25-34 pg Mean Corpuscular Hemoglobin Concent 33 32-36 g/dL Red Cell Distribution Width 14.2 10.0-14.5 % Platelet Count 265 130-400 10^3/uL Mean Platelet Volume 11.3 9.0-12.2 fL Immature Granulocyte % (Auto) 0 % Neutrophils (%) (Auto) 53 42-75 % Lymphocytes (%) (Auto) 34 12-44 % Monocytes (%) (Auto) 9 0-12 % Eosinophils (%) (Auto) 3 0-10 % Basophils (%) (Auto) 1 0-10 % Neutrophils # (Auto) 3.7 1.8-7.8 10^3/uL Lymphocytes # (Auto) 2.3 1.0-4.0 10^3/uL Monocytes # (Auto) 0.6 0.0-1.0 10^3/uL Eosinophils # (Auto) 0.2 0.0-0.3 10^3/uL Basophils # (Auto) 0.0 0.0-0.1 10^3/uL Immature Granulocyte # (Auto) 0.0 0.0-0.1 10^3/uL Sodium Level 137 135-145 MMOL/L Potassium Level 3.7 3.6-5.0 MMOL/L Chloride Level 103 98-107 MMOL/L Carbon Dioxide Level 23 21-32 MMOL/L Anion Gap 11 5-14 MMOL/L Blood Urea Nitrogen 17 7-18 MG/DL Creatinine 1.08 0.60-1.30 MG/DL Estimat Glomerular Filtration Rate 63 BUN/Creatinine Ratio 16 Glucose Level 94 70-105 MG/DL Calcium Level 10.2 H 8.5-10.1 MG/DL Corrected Calcium 8.5-10.1 MG/DL Total Bilirubin 0.7 0.1-1.0 MG/DL Aspartate Amino Transf (AST/SGOT) 22 5-34 U/L Alanine Aminotransferase (ALT/SGPT) 21 0-55 U/L Alkaline Phosphatase 106 40-136 U/L C-Reactive Protein High Sensitivity 0.60 H 0.00-0.50 MG/DL Total Protein 8.5 H 6.4-8.2 GM/DL Albumin 4.6 H 3.2-4.5 GM/DL Urine Color YELLOW Urine Clarity CLEAR Urine pH 5.0 5-9 Urine Specific [place] 1.025 H 1.016-1.022 Urine Protein NEGATIVE NEGATIVE Urine Glucose (UA) NEGATIVE NEGATIVE Urine Ketones NEGATIVE NEGATIVE Urine Nitrite NEGATIVE NEGATIVE Urine Bilirubin NEGATIVE NEGATIVE Urine Urobilinogen 0.2 < = 1.0 MG/DL Urine Leukocyte Esterase NEGATIVE NEGATIVE Urine RBC (Auto) TRACE H NEGATIVE Urine RBC RARE /HPF Urine WBC 0-2 /HPF Urine Squamous Epithelial Cells 5-10 /HPF Urine Crystals NONE /LPF Urine Bacteria FEW H /HPF Urine Casts NONE /LPF Urine Mucus NEGATIVE /LPF Urine Culture Indicated YES My Orders Orders - ESTEFANI CASTILLO MD Cbc And Automated Diff (03/10/23 13:40) Comprehensive Metabolic Panel (03/10/23 13:40) Hs C Reactive Protein (03/10/23 13:40) Ua Culture If Indicated (03/10/23 13:40) Ns Iv 1000 Ml (Ns Iv 1000 Ml) (03/10/23 13:40) Ed Iv/Invasive Line Start (03/10/23 13:40) Ketorolac Injection (Ketorolac Injection (03/10/23 13:40) Urine Culture (03/10/23 13:54) Ct Abdomen/Pelvis W (03/10/23 14:31) Iohexol Injection (Omnipaque 350 Mg/Ml 1 (03/10/23 14:45) Received Contrast (Hold Metformin- Contr (03/10/23 14:45) Ns (Ivpb) 100 Ml (Sodium Chloride 0.9% 1 (03/10/23 14:45) Medications Given in ED Current Medications Medications Dose Ordered Sig/Lynn Route Start Time Stop Time Status Last Admin Dose Admin Iohexol 100 ml ONCE ONCE IV 03/10/23 14:45 03/10/23 14:46 DC 03/10/23 15:27 80 ML Sodium Chloride 100 ml ONCE ONCE IV 03/10/23 14:45 03/10/23 14:46 DC 03/10/23 15:27 100 ML Vital Signs/I&O 03/10/23 13:16 Temp 36.1 Pulse 88 Resp 16 B/P (MAP) 138/96 (110) Pulse Ox 99 Capillary Refill : Less Than 3 Seconds Blood Pressure Mean: 110 Progress Note : Progress Note Seen and evaluated. IV, labs including CBC, CMP, CRP and UA ordered. Anticipate CT abdomen and pelvis pending creatinine results. Normal saline 1 L bolus ordered. We did discuss pain medicine at length. Patient is leery about taking pain medicine and last took her naproxen at 1 AM so we are inside window of being able to use Toradol. We did discuss this and she is decided that that would be a good plan. We will go ahead and give a single dose of reduced Toradol at 15 mg IV. Monitor patient. Differential diagnosis includes urinary tract infection, abdominal mass, diverticulitis, liver disease 1433: I have ordered CT abdomen and pelvis with contrast as patient has normal creatinine. CBC is normal and CMP is grossly normal including LFTs. CRP is minimally elevated. UA is overall grossly nonconcerning. I did review previous history and patient does have CT abdomen and pelvis from 2019 that does show hepatic steatosis but no obvious other intra-abdominal pathology at that time. We will see how things look currently. Monitor patient. 1610: The CT abdomen pelvis is complete. I do not see any obvious anterior thoracic or upper abdominal pathology including masses or infiltrate on my interpretation. 1630: CT report reviewed. Findings discussed with patient. No acute findings. I do believe this is likely musculoskeletal but could be a component of fatty liver disease. This was all discussed with the patient. Discharged home with return precautions. Patient verbalized understanding instructions and agreement with plan. Diagnostic Imaging Diagonstic Imaging: CT Plain Films/CT/US/NM/MRI: abdomen, pelvis Comments [facility] [employer] [facility] [place], [place] NAME: LAMAR WELLS [facility] REC#: [id number] PT STATUS: REG ER : 1975 PHYSICIAN: ESTEFANI CASTILLO MD ADMIT DATE: 03/10/23/ER Draft Date of Exam:03/10/23 CT ABDOMEN/PELVIS W PROCEDURE: CT abdomen and pelvis with contrast. TECHNIQUE: Multiple contiguous axial images were obtained through the abdomen and pelvis after administration of intravenous contrast. Auto Exposure Controls were utilized during the CT exam to meet ALARA standards for radiation dose reduction. All CT scans use one or more of the following dose optimizing techniques: automated exposure control, MA and/or KvP adjustment based on patient size and exam type or iterative reconstruction. INDICATION: Right flank pain. COMPARISON: 05/22/2019. DISCUSSION: Lung bases are well-aerated. Normal heart size. No pleural or pericardial fluid. Fat hepatomegaly is noted. The gallbladder is surgically absent. The pancreas, stomach, spleen, and adrenal glands are unremarkable. Small hiatal hernia. No renal stone or hydronephrosis. No evidence for appendicitis. No obstruction or constipation. Mild diverticulosis with no secondary evidence for diverticulitis. The bladder is decompressed. The uterus is surgically absent. No ascites or adenopathy. The aorta is normal in caliber. No osseous abnormality identified. IMPRESSION: No acute abnormality identified within the abdomen or pelvis. Dictated on workstation # [id number] Dict: 03/10/23 1525 Trans: 03/10/[address] [facility] [id number] Interpreted by: JL HOLLIDAY MD Electronically signed by: Departure Impression Primary Impression: Right flank pain Disposition: HOME, SELF-CARE Condition: Improved Departure-Patient Inst. Decision time for Depature: 16:41 Referrals: JOSE VIVEROS DO (PCP) Primary Care Physician NIVIA SKINNER APRN (Family) Primary Care Physician Patient Instructions: Flank Pain ED Add. Discharge Instructions: All discharge instructions reviewed with patient and/or family. Voiced understanding. You may take ibuprofen 600 mg every 8 hours as needed for pain or naproxen 500 mg every 12 hours as needed for pain but not both as they are both similar class. You may also take Tylenol/acetaminophen 1000 mg every 8 hours as needed for pain. You may use [id number] Icy Hot with lidocaine patches or cream, Aspercreme with lidocaine patches or cream, Salonpas with lidocaine patches or cream or similar items to area of concern per package directions. Follow-up with your doctor for recheck and further evaluation. Return for worse pain, fever, vomiting, weakness, breathing problems or other concerns as needed. ESTEFANI CASTILLO MD Mar 10, 2023 13:57
[2023-03-10 14:02] LABS: BASOPHILS % (AUTO) 1 % (0-10); EOSINOPHILS # (AUTO) 0.2 10^3/uL (0.0-0.3); EOSINOPHILS % (AUTO) 3 % (0-10); HEMATOCRIT 40 % (35-52); HEMOGLOBIN 13.2 g/dL (11.5-16.0); LYMPHOCYTES # (AUTO) 2.3 10^3/uL (1.0-4.0); LYMPHOCYTES % (AUTO) 34 % (12-44); MEAN CORPUSCULAR HEMOGLOBIN 28 pg (25-34); MEAN CORPUSCULAR HGB CONC 33 g/dL (32-36); MEAN CORPUSCULAR VOLUME 83 fL (80-99); MEAN PLATELET VOLUME 11.3 fL (9.0-12.2); MONOCYTES # (AUTO) 0.6 10^3/uL (0.0-1.0); MONOCYTES % (AUTO) 9 % (0-12); NEUTROPHILS # (AUTO) 3.7 10^3/uL (1.8-7.8); NEUTROPHILS % (AUTO) 53 % (42-75); PLATELET COUNT 265 10^3/uL (130-400); WHITE BLOOD COUNT 6.9 10^3/uL (4.3-11.0)
[2023-03-10 14:08] LABS: CLARITY,URINE CLEAR; COLOR,URINE YELLOW; PROTEIN,URINE NEGATIVE (NEGATIVE)
[2023-03-10 14:09] LABS: BACTERIA,URINE FEW /HPF; BILIRUBIN,URINE NEGATIVE (NEGATIVE); GLUCOSE, URINE (UA) NEGATIVE (NEGATIVE); KETONES,URINE NEGATIVE (NEGATIVE); LEUKOCYTE ESTERASE ,URINE NEGATIVE (NEGATIVE); NITRITE,URINE NEGATIVE (NEGATIVE); RBC,URINE RARE /HPF; WBC,URINE 0-2 /HPF
[2023-03-10 14:14] LABS: ALBUMIN 4.6 GM/DL (3.2-4.5); CHLORIDE 103 MMOL/L (98-107); POTASSIUM 3.7 MMOL/L (3.6-5.0); SODIUM 137 MMOL/L (135-145)
[2023-03-10 14:15] LABS: CALCIUM 10.2 MG/DL (8.5-10.1)
[2023-03-10 14:16] LABS: GLUCOSE 94 MG/DL (70-105); TOTAL PROTEIN 8.5 GM/DL (6.4-8.2)
[2023-03-10 14:17] LABS: CARBON DIOXIDE 23 MMOL/L (21-32)
[2023-03-10 14:18] LABS: BILIRUBIN,TOTAL 0.7 MG/DL (0.1-1.0)
[2023-03-10 14:19] LABS: ALKALINE PHOSPHATASE 106 U/L (40-136)
[2023-03-10 14:20] LABS: CREATININE SERUM 1.08 MG/DL (0.60-1.30); GFR ESTIMATED 63
[2023-03-10 14:21] LABS: BUN/CREATININE RATIO 16
[2023-03-10 14:23] LABS: ALANINE AMINOTRANSFERASE 21 U/L (0-55)
[2023-03-10] MEDS ORDERED: IOHEXOL 350 MG/ML 100 ML (OMNIPAQUE 350) VIAL IV ONE (14:45)
[2023-03-10] MEDS ORDERED: HOLD METFORMIN - RECEIVED CONTRAST 20 ML VIAL IV SCH (14:45)
[2023-03-10] MEDS ORDERED: NS 100 ML (IVPB) BAG IV ONE (14:45)
--- NOTE | 2023-03-10 15:31 | Diagnostic Imaging Report ---
PROCEDURE: CT abdomen and pelvis with contrast. TECHNIQUE: Multiple contiguous axial images were obtained through the abdomen and pelvis after administration of intravenous contrast. Auto Exposure Controls were utilized during the CT exam to meet ALARA standards for radiation dose reduction. All CT scans use one or more of the following dose optimizing techniques: automated exposure control, MA and/or KvP adjustment based on patient size and exam type or iterative reconstruction. INDICATION: Right flank pain. COMPARISON: 05/22/2019. DISCUSSION: Lung bases are well-aerated. Normal heart size. No pleural or pericardial fluid. Fat hepatomegaly is noted. The gallbladder is surgically absent. The pancreas, stomach, spleen, and adrenal glands are unremarkable. Small hiatal hernia. No renal stone or hydronephrosis. No evidence for appendicitis. No obstruction or constipation. Mild diverticulosis with no secondary evidence for diverticulitis. The bladder is decompressed. The uterus is surgically absent. No ascites or adenopathy. The aorta is normal in caliber. No osseous abnormality identified. IMPRESSION: No acute abnormality identified within the abdomen or pelvis. Dictated by: Dictated on workstation # [id number]
[2023-03-10 16:51] VITALS: BP 117/74
== END 2023-03-10 16:51 | disposition home or self-care (01) ==
LOC: EDUNIT# 12:59 → ER 13:03
DX: R10.11 Right upper quadrant pain (principal); R79.82 Elevated C-reactive protein (CRP); Z90.49 Acquired absence of other specified parts of digestive tract
CPT/HCPCS: 36415; 74177; 80053; 81000; 85025; 86141; 87088; 96374